=== PATIENT | male | born 1980 | race Caucasian/White ===

== ENCOUNTER 2018-10-25 11:55 | Outpatient (REF) | payer BC, SELFPAY ==
[2018-10-25 12:26] LABS: HCT 50.4 % (40.0-50.0); HGB 17.7 g/dL (13.5-17.5); Mean Corp. HGB Concentration 35.1 g/dL (32.0-36.0); Mean Corpuscular Hemoglobin 34.9 pg (27.0-33.0); Mean Corpuscular Volume 99.4 fL (80-95); Mean Platelet Volume 11.1 fL (8.0-11.0); Platelet Count 214 x1000/uL (130-400); RBC 5.07 m/cumm (4.50-6.00); RBC Distribution Width 13.2 % (11.8-14.1); White Blood Cell Count 9.37 k/cumm (4.4-10.8)
[2018-10-25 12:48] LABS: Hemoglobin A1C 5.3 % (4.5-6.2)
[2018-10-25 13:22] LABS: Anion Gap 8.9 mmol/L (3-11); BUN 11 mg/dL (7-18); CO2 27.1 mmol/L (21.0-32.0); CREATININE 1.04 mg/dL (0.70-1.30); Calcium 9.7 mg/dL (8.5-10.1); Chloride 103 mmol/L (98-107); Cholesterol 202 mg/dL (50-200); Glucose 98 mg/dL (70-100); HDL Cholesterol 53 mg/dL (40-60); LDL CHOLESTEROL 126 mg/dL (<100); Potassium 4.3 mmol/L (3.5-5.1); Sodium 139 mmol/L (136-145); Triglyceride 115 mg/dL (30-150)
== END 2018-10-25 12:15 ==
LOC: NCHCO 11:55
PROVIDERS: PCP Family Medicine; Visit Provider Family Medicine
DX: I71.4 Abdominal aortic aneurysm, without rupture (principal); I10 Essential (primary) hypertension
CPT/HCPCS: 36415; 80048; 80061; 83721; 85027; 83036

== ENCOUNTER 2019-07-05 10:53 | Outpatient (REF) | payer BC, SELFPAY ==
[2019-07-05 18:59] LABS: Anion Gap 6.8 mmol/L (3-11); BUN 12 mg/dL (7-18); CO2 30.2 mmol/L (21.0-32.0); CREATININE 1.11 mg/dL (0.70-1.30); Calcium 9.6 mg/dL (8.5-10.1); Chloride 104 mmol/L (98-107); Glucose 97 mg/dL (70-100); Potassium 5.1 mmol/L (3.5-5.1); Sodium 141 mmol/L (136-145)
== END 2019-07-05 11:13 ==
LOC: NCHCN 10:53
PROVIDERS: PCP Family Medicine; Visit Provider Family Medicine
DX: I10 Essential (primary) hypertension (principal)
CPT/HCPCS: 80048

== ENCOUNTER 2019-11-20 11:35 | Outpatient (CLI) | payer BC, SELFPAY ==
[2019-11-23 08:34] LABS: COVID-19 RT-PCR Result Not Detected
== END 2019-11-20 11:55 ==
LOC: NCHCN 17:52 → LBO 11-23 11:35
PROVIDERS: PCP Family Medicine; Visit Provider Nurse Practitioner Family
DX: Z20.828 Contact with and (suspected) exposure to other viral communicable diseases (principal); R05 Cough
CPT/HCPCS: U0003

== ENCOUNTER 2020-02-08 08:26 | Emergency (ER) | payer BC, SELFPAY ==
[2020-02-08] VITALS (51 sets, daily range): BP systolic 107–139; BP diastolic 67–96; PULSE 53–80; RESP 12–34; O2SAT 96–100
--- NOTE | 2020-02-08 08:45 | DI.CT_ITS ---
EXAM: CT THORAX ABD/PEL CTA TECHNIQUE: CT angiography of the chest, abdomen and pelvis was performed with bolus infusion of 100 cc of Omnipaque 350. Axial CT angiography was performed with multi-slice acquisition and multi-planar and/or 3D reconstruc tions. COMPARISON: CT ABD PELVIS WITH CONTRAST from 01/19/2017 FINDINGS: The lungs are clear. No pleural effusion. No evidence of pulmonary embolic disease although the pulm onary arteries were suboptimally opacified. No thoracic aortic dissection. No pleural effusion. No m ediastinal or hilar adenopathy. Tracheobronchial tree appears intact. No focal hepatic or renal abnormality seen. Gallbladder and bile ducts are CT normal. Pancreas is unr emarkable. 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 No abdominal aortic aneurysm or dissection. Major branches of the abdominal aorta appear normal. No a bdominal or pelvic adenopathy. Probable prior appendectomy.. No significant abdominal wall hernia. No focal bowel pathology. IMPRESSION: No evidence of acute vascular abnormality of the chest, abdomen or pelvis. No other abnormalities are seen. RADIATION DOSE DELIVERED: 973.63mGy.cm Total DLP DATA REPOSITORY: All CT scans at this facility are submitted to the National Radiology Data Registry (NRDR) Dose Index Registry (DIR) with the [employer] (ACR). RADIATION OPTIMIZATION: All CT scans at this facility use at least one of these dose optimization te chniques: automated exposure control; mA and/or kV adjustment per patient size (includes targeted exa ms where dose is matched to clinical indication); or iterative reconstruction.
--- NOTE | 2020-02-08 08:46 | ED.GENADUL_ITS ---
Discharge Plan Discharge Details Chief Complaint: Chest Pain Primary Care Provider: Marisa Kinney ED Provider: Mireya Shaw Home Meds and New Rx's Prescriptions: No Action lisinopril 20 mg Tablet 20 mg PO DAILY RF: 0 chlorthalidone 25 mg Tablet 25 mg PO DAILY RF: 0 Medical Decision Making 39-year-old male with a history of stomach cancer with multiple abdominal surgeries and history of a aortic aneurysm presents with chest pain x2 days which he describes as sharp stabbing worse with deep breathing which radiates into his back. He was doing some heavy lifting on Tuesday prior to onset of symptoms. He states that he was lifting a wood splitter by himself. He also endorses some shortness of breath, cough which is worse in the morning, nausea no diaphoresis, no lightheadedness. He sees cardiology and oncology at [facility]. He is a every day smoker. On initial presentation he is alert and oriented x4, vital signs are stable blood pressure is 139/96. He does have bilateral radial pulses which are equal no heart murmur heard. He also does have some mild abdominal tenderness. 08 38: EKG was reviewed by Mayra Goldsmith MD ER attending, no STEMI, less than [address] depression lead II, seen in previous old EKG review from January 14, 2013 0943: Patient transfer reported to CT on monitor with RN at bedside. Differential diagnosis includes but not limited to dissecting aortic aneurysm, coronary artery disease, PE, viral URI, COVID, NSTEMI 1024: Patient returns with RN from CT on monitor, remained hemodynamically stable, when laying down on the table patient reports pain got worse, upon sitting up increased dizziness, will repeat EKG. Awaiting CT results. 1034: EKG at 1031 shows changes in V1 V2 V3 flipped T waves, and anterior and lateral leads which is concerning for ischemia as soon as the CT result is returned with no dissection we will give aspirin and nitro to see if this relieves his chest pain. Initial troponin is within normal limits. Preliminary result received from Dr. Barrientos no dissection will give aspirin and nitro. 1116: Spoke with [facility] regarding patient for cardiology consult, patient to be transferred. 1157: Spoke with cardiology nurse practitioner who agrees to accept patient for transfer admitting physician is going to be Dr. Wilson with cardiology. She recommends Plavix 300 mg heparin drip, aspirin 162 mg and another nitroglycerin sublingual x2. 1232: Patient reevaluation still complaining of pain 5 out of 10 it is constant which waxes and wanes shortness of breath increases with deep breathing. At this time we are pending bed assignment cardiology re-paged to discuss continued pain after interventions. 1250: Spoke to [facility] cardiology nurse practitioner regarding patient's continued pain, nitro drip ordered per recommendation. 13 37: Spoke with patient's Marilu who is concerned for the amount of time is taken to be transferred, patient given encouragement and ensure that we are doing the best we can. [facility] transfer center called again and bed confirmation obtained, transport being arranged at this time. 1421: EMS here for transport, spoke again with patient's Marilu and informed of transfer and that [facility] is [facility] for [facility], verbalized understanding. Medical Records Medical records reviewed: Yes I reviewed the patient's medical records. Medical records narrative: 0926: Medical records obtained from [facility] from a cardiac office visit on 07/31/2019 by Seamus Alvarado cardiac surgery, they are following him for a moderate sized aneurysm noted CT with different technique his aorta is 4.1 cm he has been followed for yearly CT scans with aortic protocol. Old EKG reviewed from medical records which includes marked sinus bradycardia, moderate voltage criteria for LVH nonspecific T wave abnormalities of the EKG available for review on 04/22/2015. HPI General Mode of arrival: ambulatory . Date/Time Provider Initiated Documentation: 02/08/20 08:36 . Limitations to Documentation: no limitations . Information obtained by: patient . HPI Narrative: 39-year-old male with a history of stomach cancer with multiple abdominal surgeries and history of a aortic aneurysm presents with chest pain x2 days which he describes as sharp stabbing worse with deep breathing which radiates into his back. He was doing some heavy lifting on Tuesday prior to onset of symptoms. He states that he was lifting a wood splitter by himself. He also endorses some shortness of breath, cough which is worse in the morning, nausea no diaphoresis, no lightheadedness. He sees cardiology and oncology at [facility]. He is a every day smoker. On initial presentation he is alert and oriented x4, vital signs are stable blood pressure is 139/96. He does have bilateral radial pulses which are equal no heart murmur heard. He also does have some mild abdominal tenderness. Related Data Home Medications Medication Instructions Recorded Confirmed chlorthalidone 25 mg PO DAILY 02/08/20 02/08/20 lisinopril 20 mg PO DAILY 02/08/20 02/08/20 Allergies Allergy/AdvReac Type Severity Reaction Status Date / Time No Known Allergies Allergy Unverified 02/08/20 08:43 General Stated Complaint: Chest Pain JOSSELINE: 3 Review of Systems Narrative: Constitutional: Negative for weight loss, alert and oriented, well g roomed, normal body habitus, appears comfortable. HEENT: Denies trauma, headaches, blurry vision, nasal discharge, sore throat, trouble swallowing. Chest: Denies palpitations, irregular rhythm. Positive chest pain which radiates into the back started 2 days ago. Respiratory: Denies Shortness of breath, cough, hemoptysis. GI: Denies vomiting, diarrhea, constipation. Has history of stomach cancer requiring extensive abdominal surgery splenectomy cholecystectomy per patient. : Denies dysuria, hematuria, flank pain, rectal bleeding. Neuro: Denies dizziness, blurry vision, weakness, syncope, headache or facial numbness. Hematologic: Denies easy bruising, intolerance to heat or cold, hair loss. All systems reviewed & are unremarkable except as noted in HPI and below PFSH Social History Smoking/Tobacco Use Status: Current every day Drug use: Never Do you feel safe at home: Yes Do you feel safe in your relationship?: Yes Exam Narrative Exam Narrative: Constitutional: Alert and oriented x3. Appears stated age. Normal body habitus. Head: Normocephalic, no trauma. Eyes: Pupils PERRLA, Red reflex noted, EOM's intact. Eyelids symmetrical without lesions, discharge, or swelling. ENT: Bilateral TM's WNL, External ear normal to inspection, no mastoid TTP, swelling, or erythema, Nasal turbinates WNL, no nasal discharge. Normal dentition, Posterior pharynx WNL, no exudate. Chest: RRR, Normal S1, S2, distal pulses intact. No JV distention, bilateral radial pulses equal and within normal limits. Blood pressure is 139/96 Resp: Lungs clear to auscultation bilaterally, no wheezes, rales, or rhonchi. Abdomen: Soft, does have mild generalized tenderness with palpation. Nondistended. No abdominal bruit auscultated, Musculoskeletal: Normal gait, 5/5 strength to all four extremities. Skin: No suspicious rashes or lesions. Capillary refill less than 2 sec. Neurologic: Cranial nerves II-XII intact. Alert and oriented x 3. DTR's intact. Hematologic/Lymphatic: No ecchymosis, no lymphadenopathy. Course Vital Signs Vital signs: Vital Signs Pulse 80 02/08/20 08:34 Respiratory Rate 18 02/08/20 08:34 Blood Pressure 139/96 H 02/08/20 08:34 Pulse Oximetry 98 02/08/20 08:34 Pulse 80 02/08/20 08:34 Respiratory Rate 18 02/08/20 08:39 Respiratory Effort 02/08/20 08:39 Respiratory Depth Normal 02/08/20 08:39 Respiratory Pattern Normal 02/08/20 08:39 Blood Pressure 139/96 H 02/08/20 08:34 Blood Pressure Position Sitting 02/08/20 08:34 Pulse Oximetry 98 02/08/20 08:34 Oxygen Delivery Method Room Air 02/08/20 08:34 Oxygen Flow Rate 0 02/08/20 08:34 Pain Level 7 02/08/20 08:34 Critical Care Time Critical Care Time Total Critical Care Time: 40 Attestation: I spent greater than 35 minutes addressing this patient's acute life threatening illness. This time was spent engaged in actions directly related to the patient's care. Failure ti initiate these interventions would have likely resulted in clinically significant or life threatening deterioration in the patients condition. This included but not limited to cardiac interventions, frequent monitoring, frequent reevaluation, and speaking with family.
[2020-02-08 09:05] LABS: Abs Immature Grans 0.03 k/cumm (0.0-0.09); Absolute Basophil Count 0.06 k/cumm (0.0-0.2); Absolute Eosinophil Count 0.25 k/cumm (0.0-0.7); Absolute Lymphocyte Count 3.18 k/cumm (1.2-3.4); Absolute Monocyte Count 1.38 k/cumm (0.11-0.7); Absolute Neutrophil Count 6.34 k/cumm (1.2-6.7); Basophils % 0.5; Eosinophils % 2.2; HCT 48.7 % (40.0-50.0); HGB 17.6 g/dL (13.5-17.5); Immature Grans % 0.3 %; Lymphocytes % 28.3; Mean Corp. HGB Concentration 36.1 g/dL (32.0-36.0); Mean Corpuscular Hemoglobin 35.5 pg (27.0-33.0); Mean Corpuscular Volume 98.2 fL (80-95); Mean Platelet Volume 10.3 fL (8.0-11.0); Monocytes % 12.3; Neutrophils % 56.4; Platelet Count 299 x1000/uL (130-400); RBC 4.96 m/cumm (4.50-6.00); RBC Distribution Width 12.4 % (11.8-14.1); White Blood Cell Count 11.24 k/cumm (4.4-10.8)
[2020-02-08 09:21] LABS: ALT 58 U/L (16-63); AST 33 U/L (15-37); Albumin 4.2 g/dL (3.4-5.0); Alkaline Phosphatase 70 U/L (46-116); Anion Gap 9.2 mmol/L (3-11); BUN 15 mg/dL (7-18); Bilirubin, Total 1.3 mg/dL (0.2-1.0); CO2 26.8 mmol/L (21.0-32.0); CREATININE 1.13 mg/dL (0.70-1.30); Calcium 9.7 mg/dL (8.5-10.1); Chloride 97 mmol/L (98-107); Glucose 104 mg/dL (74-106); Potassium 3.4 mmol/L (3.5-5.1); Sodium 133 mmol/L (136-145); Total Protein 8.3 g/dL (6.4-8.2)
[2020-02-08 09:22] LABS: Troponin I < 0.05 ng/mL (<0.06)
[2020-02-08 09:35] LABS: D-Dimer 203 ng/mlFEU (<500)
[2020-02-08] MEDS: Omnipaque 350 MG/ML 100 ML BTL IJ (10:22)
[2020-02-08] MEDS: Normal Saline - Diluent 50 ML VIAL IV (10:23)
[2020-02-08] MEDS: Normal Saline Flush 10 ML SYR IVP (10:24)
[2020-02-08] MEDS: Normal Saline 1,000 ML 1000 ML IV (10:25)
[2020-02-08] MEDS: Aspirin 81 MG CHEW 162 MG CH (10:50)
[2020-02-08 11:41] LABS: Troponin I < 0.05 ng/mL (<0.06)
[2020-02-08] MEDS: Clopidogrel 300 MG TAB PO (11:56)
[2020-02-08 12:43] LABS: *AMPHETAMINES SCREEN URINE Negative (Negative); *BARBITURATES SCREEN URINE Negative (Negative); *BENZODIAZEPINES SCREEN URINE Negative (Negative); Cannabinoids THC POSITIVE (Negative); Cocaine Screen,Urine Negative (Negative); METHADONE URINE SCREEN Negative (Negative); OPIATES URINE SCREEN Negative (Negative)
[2020-02-08 12:46] LABS: Tricyclic Antidepressants Negative (Negative)
[2020-02-08 22:03] LABS: COVID-19 RT-PCR UVMMC Result Negative (Negative)
== END 2020-02-08 14:08 | disposition short-term general hospital (02) ==
PROVIDERS: Emergency Provider Registered Nurse Emergency; PCP Family Medicine
DX: I20.9 Angina pectoris, unspecified (principal); R06.02 Shortness of breath; I71.9 Aortic aneurysm of unspecified site, without rupture; R11.0 Nausea; C16.9 Malignant neoplasm of stomach, unspecified; F17.200 Nicotine dependence, unspecified, uncomplicated
CPT/HCPCS: 36415; 74177; 80053; 80307; 93005; 96361; 96365; 96366; 96376; 99291; U0003; 83735; 84484; 85025; 85379; 93010; J3490

== ENCOUNTER 2020-11-03 13:40 | Outpatient (REF) | payer OTHER, SELFPAY ==
[2020-11-03 16:25] LABS: HCT 44.1 % (40.0-50.0); HGB 15.1 g/dL (13.5-17.5); MCH 34.2 pg (27.0-33.0); MCHC 34.2 % (32.0-36.0); MPV 12.2 fL (8.0-11.0); Platelet Count 264 10^3/uL (130-400); RBC 4.41 10^6/uL (4.36-5.78); RDW 13.8 % (11.8-14.1); RDW-SD 51.1 fL; WBC 8.85 10^3/uL (4.4-10.8)
[2020-11-03 16:44] LABS: ALT 34 U/L (16-63); Anion Gap 6.8 mmol/L (3-11); BUN 15 mg/dL (7-18); CO2 27.2 mmol/L (21.0-32.0); CREATININE 1.2 mg/dL (0.70-1.30); Calcium 9.1 mg/dL (8.5-10.1); Calculated LDL 114 mg/dL (<100); Chloride 105 mmol/L (98-107); Cholesterol 194 mg/dL (<200); Glucose 94 mg/dL (74-106); HDL Cholesterol 65 mg/dL (40-60); Potassium 4.2 mmol/L (3.5-5.1); Sodium 139 mmol/L (136-145); Triglyceride 76 mg/dL (<150)
[2020-11-03 17:01] LABS: Hemoglobin A1C 5.4 % (<5.7)
== END 2020-11-03 13:41 | disposition home or self-care (01) ==
LOC: NCHCN 13:40
PROVIDERS: PCP Family Medicine; Visit Provider Family Medicine
DX: I10 Essential (primary) hypertension (principal); E78.5 Hyperlipidemia, unspecified; Z13.1 Encounter for screening for diabetes mellitus; Z90.81 Acquired absence of spleen
CPT/HCPCS: 80048; 80061; 85027; 83036; 84460

== ENCOUNTER 2021-03-11 13:59 | Outpatient (REF) | payer OTHER, SELFPAY ==
[2021-03-13 11:49] LABS: COVID-19 RT-PCR UVMMC Result Negative (Negative)
== END 2021-03-11 14:00 | disposition home or self-care (01) ==
LOC: LBN 13:59
PROVIDERS: PCP Family Medicine; Visit Provider Family Medicine
DX: J06.9 Acute upper respiratory infection, unspecified (principal); J02.9 Acute pharyngitis, unspecified; Z20.822 Contact with and (suspected) exposure to COVID-19
CPT/HCPCS: U0003; 87070

== ENCOUNTER 2021-09-29 09:51 | Emergency (ER) | payer OTHER, SELFPAY ==
[2021-09-29] VITALS (34 sets, daily range): BP systolic 116–144; BP diastolic 68–93; PULSE 52–79; RESP 10–20; TEMP 36.6–36.7; O2SAT 98–100
--- NOTE | 2021-09-29 09:45 | RT.EKG_ITS ---
APPROVED REPORT Exam: Resting ECG Reason for Exam: dizzy Patient Location: E HR:65 bpm ECG Measurements Heart Rate 65 AXIS NJ 126 P 44 QRSd 93 QRS 51 QT 372 T 261 QTc 388 Conclusion Sinus rhythm. LVH Nonspecific T abnormalities, diffuse leads...T <-0.10mV, ant/lat/inf
--- NOTE | 2021-09-29 10:00 | DI.CT_ITS ---
Exam(s) CT THORAX ABD/PEL CTA EXAM: CT THORAX ABD/PEL CTA CLINICAL HISTORY: chest pressure, sob, hx aneurysm. TECHNIQUE: Imaging Protocol: Axial CT angiography was performed with multi-slice acquisition and m ulti-planar and/or 3D reconstructions. CONTRAST MATERIAL: Intravenous: Omnipaque 350 Contrast volume:structured data in ml Oral: No COMPARISON: CT CT ANGIOGRAM CHEST (NON-CORONARY) WWO CONTRAST from 07/31/[address] THORAX ABD/PEL CTA from 02/08/2020 FINDINGS: CHEST: Tracheobronchial tree: Patent where visualized. Pulmonary parenchyma: No consolidation or dominant measurable mass. No architectural distortion. Depe ndent atelectasis. Pulmonary Arteries: No evidence of filling defect to suggest pulmonary emboli. Mediastinum and Kristen: No dominant adenopathy or fluid collection. The esophagus is unremarkable. Visualized thyroid: Unremarkable. Pleura: No effusion or pneumothorax. Heart: The heart is not dilated. No coronary artery calcifications are seen. No pericardial effusion. Aorta: The ascending thoracic aorta measures 4 cm. This is unchanged compared to the prior examinati ons. No dissection. Soft Tissues: Unremarkable. Bones: Within normal limits for the patient's age. ABDOMEN AND PELVIS: Abdomen: Celiac axis/mesenteric arteries: No evidence of occlusion or significant stenosis. Renal Arteries: No evidence of occlusion or significant stenosis. There is a single renal artery per fusing each kidney. Aorta: No evidence of occlusion or significant stenosis. No aneurysm or dissection. Pelvis: Iliac Arteries: No evidence of occlusion or significant stenosis. Common Femoral Arteries: No evidence of occlusion or significant stenosis. ABDOMEN: Liver: Normal density. No measurable mass. Portal, Superior Mesenteric, and Splenic Veins: Unremarkable. Gallbladder and Biliary Tract: No biliary ductal dilatation. Pancreas: Normal density, no abnormal calcifications or inflammatory process. Spleen: The spleen is absent. Adrenals: No masses seen. Kidneys: Normal size, contour and axis. No radiodense stones or obstructive uropathy. There are few t iny hypodensities seen in the left kidney. They are too small for further characterization but likel y reflect small cysts. No follow-up is recommended. Bowel: No obstruction or bowel wall thickening. No evidence of appendicitis. Peritoneal Cavity: No ascites, collection or mesenteric inflammatory response. No free air. Lymph Nodes: Within normal limits. Bones: Within normal limits for the patient's age. Soft Tissues: Unremarkable. PELVIS: Bladder: Symmetric distention, no gross wall thickening. Reproductive Organs: Enlarged prostate gland with calcifications. Lymph Nodes: Within normal limits. Bones: Within normal limits. IMPRESSION: 1. No evidence of aneurysm, dissection, occlusion or significant stenosis of the large arteries in th e chest abdomen and pelvis. 2. No evidence of a pulmonary embolus. 3. No acute abdominal, chest or pelvic process. 4. Results of this exam have been verbally communicated with provider. RADIATION DOSE DELIVERED: 974.02mGy.cm Total DLP DATA REPOSITORY: All CT scans at this facility are submitted to the National Radiology Data Registry (NRDR) Dose Index Registry (DIR) with the [employer] (ACR). RADIATION OPTIMIZATION: All CT scans at this facility use at least one of these dose optimization te chniques: automated exposure control; mA and/or kV adjustment per patient size (includes targeted exa ms where dose is matched to clinical indication); or iterative reconstruction.
--- NOTE | 2021-09-29 10:15 | DI.CT_ITS ---
Exam(s) CT BRAIN NECK CTA EXAM: CT BRAIN NECK CTA CLINICAL HISTORY: head fog, GONSALVES, blurry vision. TECHNIQUE: Imaging Protocol: Axial CT angiography was performed with multi-slice acquisition and mu lti-planar and/or 3D reconstructions. CONTRAST MATERIAL: Intravenous: Omnipaque 350 Contrast volume:100 mL COMPARISON: CT CT THORAX ABD/PEL CTA from 09/29/2021 FINDINGS: CT Head W/O and W: Ventricles and Extra axial spaces: Normal in size and morphology for the patient's age. Hemorrhage: None. Cerebral parenchyma: Normal. Midline shift: None. Brainstem/Cerebellum: Normal. Calvarium: Normal. Visualized Paranasal sinuses/Mastoids: Clear. Soft Tissues: Unremarkable. Enhancement: Unremarkable. CTA Neck W: Common Carotid: Right: No dissection, occlusion or significant stenosis. Left: No dissection, occlusion or significant stenosis. External Carotid: Right: No occlusion or significant stenosis. Left: No occlusion or significant stenosis. Internal Carotid: Right: No dissection, occlusion or significant stenosis. Left: No dissection, occlusion or significant stenosis. Vertebral Artery: Right: No dissection, occlusion or significant stenosis. Left: No dissection, occlusion or significant stenosis. Lung Apices: Normal. Bones: Within normal limits for the patient's age. Soft Tissues: Normal. Thyroid gland: Unremarkable. CTA Brain W: Internal Carotid Arteries: Normal. Anterior Cerebral Arteries: Right: No aneurysm, occlusion or significant stenosis. Left: No aneurysm, occlusion or significant stenosis. Middle Cerebral Arteries: Right: No aneurysm, occlusion or significant stenosis. Left: No aneurysm, occlusion or significant stenosis. Posterior Cerebral Arteries: Right: No aneurysm, occlusion or significant stenosis. Left: No aneurysm, occlusion or significant stenosis. Vertebral Arteries: Right: No aneurysm, occlusion or significant stenosis. Left: No aneurysm, occlusion or significant stenosis. Basilar Artery: No aneurysm, occlusion or significant stenosis. IMPRESSION: 1. No large vessel occlusion or significant stenosis on the CT angiography of the head. 2. No acute intracranial process. 3. No occlusion or significant stenosis on the CT angiography of the neck. RADIATION DOSE DELIVERED: 2,045.45mGy.cm Total DLP DATA REPOSITORY: All CT scans at this facility are submitted to the National Radiology Data Registry (NRDR) Dose Index Registry (DIR) with the [employer] (ACR). RADIATION OPTIMIZATION: All CT scans at this facility use at least one of these dose optimization te chniques: automated exposure control; mA and/or kV adjustment per patient size (includes targeted exa ms where dose is matched to clinical indication); or iterative reconstruction.
[2021-09-29 10:39] LABS: Abs Immature Grans 0.02 10^3/uL (0.0-0.06); Absolute Basophil Count 0.07 10^3/uL (0.0-0.2); Absolute Eosinophil Count 0.08 10^3/uL (0.0-0.7); Absolute Lymphocyte Count 3.16 10^3/uL (1.2-3.4); Basophils % 0.8; Eosinophils % 0.9; HGB 16.3 g/dL (13.5-17.5); Immature Grans % 0.2; Lymphocytes % 34.6; MCHC 35.4 % (32.0-36.0); MCV 95.8 fL (80-95); MPV 10.6 fL (8.0-11.0); Monocytes % 9.9; Neutrophils % 53.6; Nucleated RBC 0 %; Platelet Count 298 10^3/uL (130-400); RDW 12.1 % (11.8-14.1); RDW-SD 42.9 fL; WBC 9.13 10^3/uL (4.4-10.8)
[2021-09-29 10:48] LABS: Source Nasal/Nares
[2021-09-29 10:52] LABS: PTT Activated 23.5 sec (21.0-27.5); Prothrombin Time 10.5 sec (9.3-11.0)
--- NOTE | 2021-09-29 10:52 | ED.GENADUL_ITS ---
Discharge Plan Disposition Patient Disposition: HOME Condition: Stable Discharge Details Clinical Impression: Chest pain Primary Care Provider: Marisa Kinney ED Provider: Jovany Beck Home Meds and New Rx's Prescriptions: Continued atorvastatin 10 mg tablet 10 mg PO DAILY RF: 0 lisinopril 20 mg Tablet 20 mg PO DAILY RF: 0 chlorthalidone 25 mg Tablet 25 mg PO DAILY RF: 0 Discharge Instructions Instructions: Chest Pain (ED) Additional Instructions: Your work-up today does not reveal any obvious emergent process. I spoke with cardiology at [facility] who felt as though discharge home is reasonable with close outpatient follow-up. [id number] anti-inflammatory medication such as Motrin or ibuprofen as directed. Please watch for new or worsening symptoms and return to the ER for any concerns. I recommend reaching out to both your primary care provider and your cardiology team later today or tomorrow to discuss your ER visit, need for outpatient reevaluation, and potential o utpatient stress test. Medical Decision Making 41-year-old gentleman, current smoker, history of stomach cancer, aortic regurgitation, ascending aortic aneurysm, presents to the ER with multiple complaints, head fall, dizziness, feeling like it is passed out, chest pressure, shortness of breath that all began yesterday. He denies recent illness or trauma. Patient is slightly reproducible and may be slightly worse with sitting upright. Clinically he appears well, nontoxic, hemodynamically stable. Based upon his presentation low suspicion for ACS, PE, pneumonia, etc. Given his history, certainly concern for dissection, pericarditis, etc. Plan is to obtain a cardiac work-up including a D-dimer, will obtain CTA of the brain, neck, ches t, abdomen, pelvis given his complaints both of chest discomfort, headache, blurry vision, etc. Patient is agreeable to this plan and has no additional questions or concerns. Currently reports discomfort is a 4 or 5 out of 10. In the meantime I was able to review records from [facility], February 2020 when he was transferred there for chest pain. Negative stress test, eventually discharged with a diagnosis of pericarditis. Initial laboratory values are unremarkable for emergent process. Troponin is less than 50. Sodium 134 potassium 3.4 creatinine 1.02 GFR greater than 60. Glucose 140, no evidence of leukocytosis or anemia. Total bili of 1.6 but does not have any abdominal pain whatsoever. BNP 16. Covid negative. D-dimer 295. CTA of brain, neck, chest, pelvis unremarkable for emergent process per radiology Discussed work-up thus far with patient. Reports his pain is a three or four. He is agreeable to awaiting a repeat troponin. In the meantime I was able to consult with cardiology from [facility], Cassia Bethea NP. She was able to personally reviewed the EKG from today, reviewed his visit at [facility], and we discussed his overall presentation and work-up today. She feels that the patient can safely be discharged if he has a delta troponin that is not trending upward. She feels as though obtaining a CRP and sed rate is reasonable, if positive treat for pericarditis with colchicine and high-dose aspirin, if unremarkable simply treat with anti-inflammatory medications. She recommends the patient contact the cardiology team as an outpatient this is a evaluation of potential repeat stress CRP less than 0.05, sed rate 7. Patient given 30 IV Toradol I spoke with the patient regarding his overall work-up including delta troponin which is unremarkable, inflammatory markers, and my conversation with cardiology. He reports now his pain is barely noticeable 1 out of 10. He is comfortable discharge. Strict discharge and return precautions were provided. This documentation was generated using x[employer] dictation system, please disregard any oddities of phrase or misspellings. Medical Records Medical records reviewed: Yes I reviewed the patient's medical records. Imaging Data Radiologic Study: Attestation: I personally reviewed and interpreted this imaging study as follows: Imaging: CT Scan Radiologist's impression: Exam(s) CT BRAIN NECK CTA EXAM: CT BRAIN NECK CTA CLINICAL HISTORY: head fog, GONSALVES, blurry vision. TECHNIQUE: Imaging Protocol: Axial CT angiography was performed with multi- slice acquisition and multi-planar and/or 3D reconstructions. CONTRAST MATERIAL: Intravenous: Omnipaque 350 Contrast volume:100 mL COMPARISON: CT CT THORAX ABD/PEL CTA from 09/29/2021 FINDINGS: CT Head W/O and W: Ventricles and Extra axial spaces: Normal in size and morphology for the patient's age. Hemorrhage: None. Cerebral parenchyma: Normal. Midline shift: None. Brainstem/Cerebellum: Normal. Calvarium: Normal. Visualized Paranasal sinuses/Mastoids: Clear. Soft Tissues: Unremarkable. Enhancement: Unremarkable. CTA Neck W: Common Carotid: Right: No dissection, occlusion or significant stenosis. Left: No dissection, occlusion or significant stenosis. External Carotid: Right: No occlusion or significant stenosis. Left: No occlusion or significant stenosis. Internal Carotid: Right: No dissection, occlusion or significant stenosis. Left: No dissection, occlusion or significant stenosis. Vertebral Artery: Right: No dissection, occlusion or significant stenosis. Left: No dissection, occlusion or significant stenosis. Lung Apices: Normal. Bones: Within normal limits for the patient's age. Soft Tissues: Normal. Thyroid gland: Unremarkable. CTA Brain W: Internal Carotid Arteries: Normal. Anterior Cerebral Arteries: Right: No aneurysm, occlusion or significant stenosis. Left: No aneurysm, occlusion or significant stenosis. Middle Cerebral Arteries: Right: No aneurysm, occlusion or significant stenosis. Left: No aneurysm, occlusion or significant stenosis. Posterior Cerebral Arteries: Right: No aneurysm, occlusion or significant stenosis. Left: No aneurysm, occlusion or significant stenosis. Vertebral Arteries: Right: No aneurysm, occlusion or significant stenosis. Left: No aneurysm, occlusion or significant stenosis. Basilar Artery: No aneurysm, occlusion or significant stenosis. IMPRESSION: 1. No large vessel occlusion or significant stenosis on the CT angiography of the head. 2. No acute intracranial process. 3. No occlusion or significant stenosis on the CT angiography of the neck. Lab Data Lab results reviewed: Yes I reviewed the patient's lab results. Labs: Laboratory Tests Range/Units 09/29/21 09/29/21 09/29/21 10:05 10:05 10:05 WBC (4.4-10.8) 10^3/uL 9.13 RBC (4.36-5.78) 10^6/uL 4.80 Hgb (13.5-17.5) g/dL 16.3 Hct (40.0-50.0) % 46.0 MCV (80-95) fL 95.8 H MCH (27.0-33.0) pg 34.0 H MCHC (32.0-36.0) % 35.4 RDW (11.8-14.1) % 12.1 Plt Count (130-400) 10^3/uL 298 MPV (8.0-11.0) fL 10.6 Immature Gran % 0.2 Neutrophils % 53.6 Lymphocytes % 34.6 Monocytes % 9.9 Eosinophils % 0.9 Basophils % 0.8 Nucleated RBC % % 0 Absolute Neutrophils (1.2-6.7) 10^3/uL 4.90 Absolute Lymphocytes (1.2-3.4) 10^3/uL 3.16 Absolute Monocytes (0.1-0.8) 10^3/uL 0.90 H Absolute Eosinophils (0.0-0.7) 10^3/uL 0.08 Absolute Basophils (0.0-0.2) 10^3/uL 0.07 ESR (0-15) mm/hr PT (9.3-11.0) sec 10.5 INR (0.9-1.1) 1.0 APTT (21.0-27.5) sec 23.5 D-Dimer (<500) ng/mlFEU 295 Sodium (136-145) mmol/L 134 L Potassium (3.5-5.1) mmol/L 3.4 L Chloride (98-107) mmol/L 97 L Carbon Dioxide (21.0-32.0) mmol/L 28.7 Anion Gap (3-11) mmol/L 8.3 BUN (7-18) mg/dL 12 Creatinine (0.70-1.30) mg/dL 1.1 Estimated GFR/1.73 m2 (mL/min/1.73m2) >= 60.00 Glucose (74-106) mg/dL 140 H Calcium (8.5-10.1) mg/dL 9.2 Magnesium (1.8-2.4) mg/dL 2.0 Total Bilirubin (0.2-1.0) mg/dL 1.6 H AST (15-37) U/L 20 ALT (16-63) U/L 29 Alkaline Phosphatase (46-116) U/L 72 Troponin I (<or=60) ng/L < 50 C-Reactive Protein (0.0-0.3) mg/dL NT-Pro-B Natriuret Pep (<300) pg/mL 16 Total Protein (6.4-8.2) g/dL 8.2 Albumin (3.4-5.0) g/dL 4.2 COVID-19 Source SARS-CoV-2 (PCR) (Negative) Range/Units 09/29/21 09/29/21 09/29/21 10:05 10:05 10:32 WBC (4.4-10.8) 10^3/uL RBC (4.36-5.78) 10^6/uL Hgb (13.5-17.5) g/dL Hct (40.0-50.0) % MCV (80-95) fL MCH (27.0-33.0) pg MCHC (32.0-36.0) % RDW (11.8-14.1) % Plt Count (130-400) 10^3/uL MPV (8.0-11.0) fL Immature Gran % Neutrophils % Lymphocytes % Monocytes % Eosinophils % Basophils % Nucleated RBC % % Absolute Neutrophils (1.2-6.7) 10^3/uL Absolute Lymphocytes (1.2-3.4) 10^3/uL Absolute Monocytes (0.1-0.8) 10^3/uL Absolute Eosinophils (0.0-0.7) 10^3/uL Absolute Basophils (0.0-0.2) 10^3/uL ESR (0-15) mm/hr 7 PT (9.3-11.0) sec INR (0.9-1.1) APTT (21.0-27.5) sec D-Dimer (<500) ng/mlFEU Sodium (136-145) mmol/L Potassium (3.5-5.1) mmol/L Chloride (98-107) mmol/L Carbon Dioxide (21.0-32.0) mmol/L Anion Gap (3-11) mmol/L BUN (7-18) mg/dL Creatinine (0.70-1.30) mg/dL Estimated GFR/1.73 m2 (mL/min/1.73m2) Glucose (74-106) mg/dL Calcium (8.5-10.1) mg/dL Magnesium (1.8-2.4) mg/dL Total Bilirubin (0.2-1.0) mg/dL AST (15-37) U/L ALT (16-63) U/L Alkaline Phosphatase (46-116) U/L Troponin I (<or=60) ng/L C-Reactive Protein (0.0-0.3) mg/dL < 0.05 NT-Pro-B Natriuret Pep (<300) pg/mL Total Protein (6.4-8.2) g/dL Albumin (3.4-5.0) g/dL COVID-19 Source Nasal/Nares SARS-CoV-2 (PCR) (Negative) Negative Range/Units 09/29/21 13:07 WBC (4.4-10.8) 10^3/uL RBC (4.36-5.78) 10^6/uL Hgb (13.5-17.5) g/dL Hct (40.0-50.0) % MCV (80-95) fL MCH (27.0-33.0) pg MCHC (32.0-36.0) % RDW (11.8-14.1) % Plt Count (130-400) 10^3/uL MPV (8.0-11.0) fL Immature Gran % Neutrophils % Lymphocytes % Monocytes % Eosinophils % Basophils % Nucleated RBC % % Absolute Neutrophils (1.2-6.7) 10^3/uL Absolute Lymphocytes (1.2-3.4) 10^3/uL Absolute Monocytes (0.1-0.8) 10^3/uL Absolute Eosinophils (0.0-0.7) 10^3/uL Absolute Basophils (0.0-0.2) 10^3/uL ESR (0-15) mm/hr PT (9.3-11.0) sec INR (0.9-1.1) APTT (21.0-27.5) sec D-Dimer (<500) ng/mlFEU Sodium (136-145) mmol/L Potassium (3.5-5.1) mmol/L Chloride (98-107) mmol/L Carbon Dioxide (21.0-32.0) mmol/L Anion Gap (3-11) mmol/L BUN (7-18) mg/dL Creatinine (0.70-1.30) mg/dL Estimated GFR/1.73 m2 (mL/min/1.73m2) Glucose (74-106) mg/dL Calcium (8.5-10.1) mg/dL Magnesium (1.8-2.4) mg/dL Total Bilirubin (0.2-1.0) mg/dL AST (15-37) U/L ALT (16-63) U/L Alkaline Phosphatase (46-116) U/L Troponin I (<or=60) ng/L < 50 C-Reactive Protein (0.0-0.3) mg/dL NT-Pro-B Natriuret Pep (<300) pg/mL Total Protein (6.4-8.2) g/dL Albumin (3.4-5.0) g/dL COVID-19 Source SARS-CoV-2 (PCR) (Negative) ECG Data Attestation: I personally reviewed and interpreted this ECG (s) as follows: Interpretation: Please see official report by Dr. Lock. Sinus rhythm, ventricular rate of 65. Nonspecific T wave analysis, diffuse. No STEMI HPI General Mode of arrival: ambulatory . Date/Time Provider Initiated Documentation: 09/29/21 09:55 . Limitations to Documentation: no limitations . Information obtained by: patient . HPI Narrative: This is a 41-year-old gentleman, past medical history of stomach cancer status post multiple surgeries, aortic regurgitation, ascending aortic aneurysm, hypertension, pericarditis, followed by cardiology at [facility], presents to the ER for evaluation of what he describes as feeling like he is in a head fog, feeling slightly dizzy at times, almost pass out, also 4 out of 10 left anterior chest aching does not radiate anywhere, shortness of breath worse with exertion, all of this began yesterday. He denies recent illness or trauma. He has not taken any medication for his symptoms. He reports mild headache, nausea yesterday but none now. Occasional blurry vision. He denies fever, neck pain, cough, abdominal pain, vomiting, change in bowel or bladder function, numbness, tingling, weakness, skin rash. He took a negative at home Covid test yesterday and today that were both negative. Patient had similar symptoms in February 2020, subsequently transferred to [facility], negative stress test, diagnosed with pericarditis. Related Data Home Medications Medication Instructions Recorded Confirmed chlorthalidone 25 mg PO DAILY 02/08/20 09/29/21 lisinopril 20 mg PO DAILY 02/08/20 09/29/21 atorvastatin 10 mg tablet 10 mg PO DAILY 05/05/21 09/29/21 Allergies Allergy/AdvReac Type Severity Reaction Status Date / Time No Known Allergies Allergy Verified 09/29/21 10:00 General Stated Complaint: Chest Pain JOSSELINE: 2 Review of Systems Constitutional Constitutional: Denies fatigue, Denies fever(s), Reports headache(s) and Denies weakness Eyes Eyes: Reports blurry vision ENT Ears, Nose, Mouth, and Throat: Reports headache(s) and Denies neck pain Cardiovascular Cardiovascular: Reports chest pain and Reports dyspnea Respiratory Respiratory: Denies cough and Reports dyspnea Gastrointestinal Gastrointestinal: Denies abdominal pain, Reports nausea and Denies vomiting Musculoskeletal Musculoskeletal: Denies neck pain, Denies numbness and Denies tingling Integumentary/Breasts Skin/Breast: Denies rash Neurologic Neurologic: Reports headache(s), Denies numbness, Denies tingling and Denies weakness Endocrine Endocrine: Denies fatigue Hematologic/Lymphatic Hematologic/Lymphatic: Denies easy bleeding and Denies easy bruising PFSH All Active Problems (Updated 09/29/21 @ 13:57 by KAREN Tidwell) Chest pain (Acute) Decreased hearing of right ear (Acute) Subjective 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 Mixed hearing loss, bilateral (Acute) Perforation of right tympanic membrane (Acute) Left flank pain (Acute 11/14/13) Renal colic on left side (Acute 11/14/13) Medical History Aortic regurgitation Ascending aortic aneurysm HLD (hyperlipidemia) Hypertension Perforated appendicitis Pericarditis Splenic vein thrombosis Social History Smoking/Tobacco Use Status: Current every day Tobacco Type: cigarettes Smoking risk assessment performed?: Yes Alcohol Intake: current Alcohol Intake frequency: 0-2 drinks per day Alcohol type: beer Drug use: Occasionally Substance use type: marijuana Do you feel safe at home: Yes Do you feel safe in your relationship?: Yes Exam Const General: cooperative, healthy appearing, comfortable and no acute distress Orientation: alert, awake and oriented x3 HENMT Head: normal to inspection, normocephalic and atraumatic Face and sinus: normal facial exam Mouth: moist mucous membranes Eyes General: appearance normal, both eyes and all related structures Conjunctivae: conjunctivae normal Neck Neck: normal visual inspection, full ROM, no meningeal signs, trachea midline, supple and nontender Chest Chest: normal inspection of the chest Chest/axillae images: 1. Mild discomfort to moderate palpation. No erythema, ecchymosis, warmth, crepitus. Resp Effort & Inspection: normal respiratory effort and able to speak in complete sentences Auscultation: clear to auscultation bilaterally Cardio Rate: regular rate Rhythm: regular rhythm Pulses: normal peripheral pulses (Equal all 4 extremities) GI Inspection: normal to inspection Palpation: soft, not firm, no guarding, no pulsatile masses and nontender Auscultation: normal bowel sounds Back/Spine/Pelvis Back: No back tenderness Skin General skin exam: no rashes or lesions noted Neuro General: patient alert, patient awake, patient oriented x3, moves all extremities and no focal motor deficits Cognition: normal cognition Speech: speech normal Gait: normal gait Motor: muscle tone normal throughout Sensory Exam: no sensory deficits noted Extrem General: normal to inspection, full ROM, capillary refill normal, no pedal edema and no calf tenderness Psych Appearance: grossly normal Mental Status: mental status grossly normal Course Vital Signs Vital signs: Vital Signs Temperature 36.6 C 09/29/21 09:57 Pulse 64 09/29/21 09:57 Respiratory Rate 18 09/29/21 09:57 Blood Pressure 144/81 H 09/29/21 09:57 Pulse Oximetry 99 09/29/21 09:57 Temperature 36.6 C 09/29/21 09:57 Temperature Source Temporal Artery Scan 09/29/21 09:57 Pulse 64 09/29/21 09:57 Respiratory Rate 18 09/29/21 09:57 Respiratory Effort 09/29/21 10:02 Respiratory Depth Normal 09/29/21 10:02 Respiratory Pattern Normal 09/29/21 10:02 Blood Pressure 144/81 H 09/29/21 09:57 Blood Pressure Position Sitting 09/29/21 09:57 Pulse Oximetry 99 09/29/21 09:57 Oxygen Delivery Method Room Air 09/29/21 09:57 Oxygen Flow Rate 0 09/29/21 09:57 Pain Level 4 09/29/21 09:57 Lab/Test Results Lab/Test Results: Laboratory Tests Range/Units 09/29/21 09/29/21 10:05 10:32 WBC (4.4-10.8) 10^3/uL 9.13 RBC (4.36-5.78) 10^6/uL 4.80 Hgb (13.5-17.5) g/dL 16.3 Hct (40.0-50.0) % 46.0 MCV (80-95) fL 95.8 H MCH (27.0-33.0) pg 34.0 H MCHC (32.0-36.0) % 35.4 RDW (11.8-14.1) % 12.1 Plt Count (130-400) 10^3/uL 298 MPV (8.0-11.0) fL 10.6 Immature Gran % 0.2 Neutrophils % 53.6 Lymphocytes % 34.6 Monocytes % 9.9 Eosinophils % 0.9 Basophils % 0.8 Nucleated RBC % % 0 Absolute Neutrophils (1.2-6.7) 10^3/uL 4.90 Absolute Lymphocytes (1.2-3.4) 10^3/uL 3.16 Absolute Monocytes (0.1-0.8) 10^3/uL 0.90 H Absolute Eosinophils (0.0-0.7) 10^3/uL 0.08 Absolute Basophils (0.0-0.2) 10^3/uL 0.07 COVID-19 Source Nasal/Nares PAWSS Have you Been Recently Intoxicated or Drunk Within the Last 30 days?: No Have you Ever Experienced Previous Episodes of Alcohol Withdrawal?: No Have you ever Experienced Withdrawal Seizures?: No Have you ever Experienced Delirium Tremens(DT)s?: No Have you ever undergone Alcohol Rehabilitation Treatment (i.e, inpt ot outpatient treatment programs)?: No Have you ever Experienced Blackouts?: No Have you ever Combined Alcohol with other Downers within the last 90 days?: No Have you ever Combined Alcohol with any other Substance of Abuse during the last 90 days?: No Positive Blood Alcohol level on Presentation? [PCS.BAL]: No Evidence of Increased Autonomic Activity (i.e. HR>120, tremor, sweating, agitation, nausea)?: No Result: 0
[2021-09-29 10:57] LABS: ALT 29 U/L (16-63); AST 20 U/L (15-37); Albumin 4.2 g/dL (3.4-5.0); Alkaline Phosphatase 72 U/L (46-116); Anion Gap 8.3 mmol/L (3-11); BUN 12 mg/dL (7-18); Bilirubin, Total 1.6 mg/dL (0.2-1.0); CO2 28.7 mmol/L (21.0-32.0); CREATININE 1.1 mg/dL (0.70-1.30); Calcium 9.2 mg/dL (8.5-10.1); Chloride 97 mmol/L (98-107); Glucose 140 mg/dL (74-106); NT-proBNP 16 pg/mL (<300); Potassium 3.4 mmol/L (3.5-5.1); Sodium 134 mmol/L (136-145); Total Protein 8.2 g/dL (6.4-8.2); Troponin I < 50 ng/L (<or=60)
[2021-09-29 11:13] LABS: D-Dimer 295 ng/mlFEU (<500)
[2021-09-29 11:28] LABS: COVID-19 PCR Negative (Negative)
[2021-09-29] MEDS: Omnipaque 350 MG/ML 100 ML BTL IJ ×2 (11:29→11:30)
[2021-09-29 13:31] LABS: Troponin I < 50 ng/L (<or=60)
[2021-09-29] MEDS: Ketorolac 30 MG/ML VIAL IVP (13:32)
[2021-09-29 13:41] LABS: ESR 7 mm/hr (0-15)
[2021-09-29 13:49] LABS: C-Reactive Protein < 0.05 mg/dL (0.0-0.3)
== END 2021-09-29 14:31 | disposition home or self-care (01) ==
PROVIDERS: Emergency Provider Physician Assistant; PCP Family Medicine
DX: R07.9 Chest pain, unspecified (principal); R42 Dizziness and giddiness; R51.9 Headache, unspecified; R06.02 Shortness of breath; I71.9 Aortic aneurysm of unspecified site, without rupture; H53.8 Other visual disturbances; Z20.822 Contact with and (suspected) exposure to COVID-19
CPT/HCPCS: 36415; 70496; 70498; 74177; 80053; 85652; 87635; 93005; 96374; 99284; 99285; 83735; 83880; 84484; 85025; 85379; 85610; 85730; 86140; 93010; J1885; J3490

== ENCOUNTER 2022-04-17 07:48 | Emergency (ER) | payer OTHER, SELFPAY ==
[2022-04-17 08:04] VITALS: BP 136/93; PULSE 90; RESP 20; TEMP 36.7; O2SAT 100
--- NOTE | 2022-04-17 08:24 | W.ED.GENAD ---
Discharge Plan Disposition Patient Disposition: [facility] Condition: Stable Discharge Details Clinical Impression: Ischemic priapism Primary Care Provider: Marisa Kinney ED Provider: Jose Lock Home Meds and New Rx's Prescriptions: No Action No Known Home Meds Medical Decision Making 41-year-old male presents with painful erection following intercourse at approximately 4-6 this morning. He denies pain or injury during intercourse. He has not had any sores or lesions, has been urinating normally, does not take any [id number] or nonprescribed Viagra or similar. Denies cocaine. Does smoke cigarettes and drink alcohol most days. Following normal intercourse patient had persistent and painful erection. He presents afebrile with blood pressure 136/93. IV access was established, the patient kept n.p.o., given fluids and parenteral analgesia. Proximately 3 hours from erection I discussed with the patient administering dorsal penile block. No local urology available, phenyleprhine ordered to bedside & case discussed with Dr. Cardozo of the [facility] urology, and I proceeded with aspiration of a blood gas given consideration of ischemiic priapism.. The procedure was tolerated well pH 6.77, pCO2>100, p02 <13. Dr. Cardozo requested no further intervention and direct transport to the [facility] for evaluation by urology. We specifically discussed fluid aspiration or instillation of phenylephrine at [facility], which we will defer. 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 He states he has been cured of disease for 5 years time. He has been n.p.o. today since midnight. [facility] General Date/Time Provider Initiated Documentation: 04/17/22 08:03. Limitations to Documentation: no limitations. Information obtained by: patient. History of Present Illness 41 year old M presents to the emergency department with the chief complaint of Painful erection 2-1/2 hours, described as moderate, Quality is described as dull and constant, and is localized to the genitals. Patient reports no radiation. Patient started experiencing this hour(s) and it has been constant. No relieving factors improve symptom(s), No exacerbating factors reported . Patient notes other (No injury, recently well); denies chest pain, diaphoresis and fever/chills. 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 Mixed hearing loss, bilateral (Acute) Perforation of right tympanic membrane (Acute) Left flank pain (Acute 11/14/13) Renal colic on left side (Acute 11/14/13) Medical History Aortic regurgitation Ascending aortic aneurysm HLD (hyperlipidemia) Hypertension Perforated appendicitis Pericarditis Splenic vein thrombosis Social History Smoking/Tobacco Use Status: Current every day Tobacco Type: cigarettes Smoking risk assessment performed?: Yes Alcohol Intake: current Alcohol Intake frequency: 0-2 drinks per day Alcohol type: beer Drug use: Occasionally Substance use type: marijuana Do you feel safe at home: Yes Do you feel safe in your relationship?: Yes Exam Narrative Exam Narrative: GEN: awake, alert, oriented 3. Pleasant, well groomed, interactive. HEAD: Normocephalic, atraumatic ENT: Mucous membranes moist, oropharynx unremarkable, External ear exam unremarkable EYES: PERRL, EOMI NECK: Full ROM, no JONATHON, no menigismus CHEST/RESP: Nontender, clear to auscultation bilateral, no wheeze/rhonchi/rales CARDIOVASCULAR: RRR, no murmur, rub maggie. 2+ Rad pulse bilateral ABDOMEN: Soft, nontender, no mass. +Bowel sounds Testes descended bilaterally. Patient is erect with firm corpus cavernosum. EXT: Full ROM, no edema, no rash Neuro: Grossly normal neurologic exam, conversant, interactive. Psych: Speech fluent, thoughts congruent, affect anxious Course Vital Signs Vital signs: Vital Signs Temperature 36.7 C 04/17/22 08:04 Pulse 90 04/17/22 08:04 Respiratory Rate 20 04/17/22 08:04 Blood Pressure 136/93 H 04/17/22 08:04 Pulse Oximetry 100 04/17/22 08:04 Temperature 36.7 C 04/17/22 08:04 Temperature Source Temporal Artery Scan 04/17/22 08:04 Pulse 90 04/17/22 08:04 Respiratory Rate 20 04/17/22 08:04 Blood Pressure 136/93 H 04/17/22 08:04 Blood Pressure Position Sitting 04/17/22 08:04 Pulse Oximetry 100 04/17/22 08:04 Oxygen Delivery Method Room Air 04/17/22 08:04 Oxygen Flow Rate 0 04/17/22 08:04 Pain Level 9 04/17/22 08:04
[2022-04-17] MEDS: ACETAMINOPHEN 1,000 MG/100 ML BTL 400 MG IVPB (08:35)
[2022-04-17] MEDS: HYDROmorphone 2 MG/ML VIAL 1 MG IVP (08:36)
[2022-04-17] MEDS: Normal Saline 1,000 ML 1000 ML IV (08:36)
[2022-04-17 09:13] LABS: sO2 < 5 % (95-98)
[2022-04-17 09:14] LABS: FIO2L ROOM AIR L
[2022-04-17 09:16] LABS: pCO2 > 100 mmHg (35-45); pO2 < 13 mmHg (80-105)
[2022-04-17] MEDS: LORazepam 20 MG/10 ML VIAL IVP (09:54)
== END 2022-04-17 09:45 | disposition short-term general hospital (02) ==
PROVIDERS: Emergency Provider Emergency Medicine; PCP Family Medicine
DX: N48.39 Other priapism (principal); F17.210 Nicotine dependence, cigarettes, uncomplicated
CPT/HCPCS: 82805; 96361; 96374; 96375; 99285; J0131; J3490

== ENCOUNTER 2022-10-21 09:48 | Outpatient (REF) | payer SELFPAY ==
[2022-10-21 15:21] LABS: HGB 17.2 g/dL (13.5-17.5); MCH 36.3 pg (27.0-33.0); MCHC 35.8 % (32.0-36.0); MCV 101 fL (80-95); MPV 11.9 fL (8.0-11.0); Platelet Count 226 10^3/uL (130-400); RBC 4.74 10^6/uL (4.36-5.78); RDW 13.7 % (11.8-14.1); RDW-SD 51.4 fL; WBC 7.74 10^3/uL (4.4-10.8)
[2022-10-21 16:17] LABS: ALT 46 U/L (16-63); AST 40 U/L (15-37); Albumin 4.1 g/dL (3.4-5.0); Alkaline Phosphatase 93 U/L (46-116); BUN 7 mg/dL (7-18); Calcium 9.2 mg/dL (8.5-10.1); Chloride 104 mmol/L (98-107); Estimated GFR 95.18 (mL/min/1.73m2); Folate 10.7 ng/mL (8.6-20.0); Glucose 98 mg/dL (74-106); Sodium 141 mmol/L (136-145); Vitamin B12 429 pg/mL (193-986)
[2022-10-23 09:40] LABS: HIV-1/2 Ag & Ab Screen Negative (Negative)
[2022-10-25 09:57] LABS: Hepatitis C Ab w Rflx HCV PCR Negative (Negative)
== END 2022-10-21 09:49 | disposition home or self-care (01) ==
LOC: NCHCN 09:48
PROVIDERS: PCP Family Medicine; Visit Provider Family Medicine
DX: I10 Essential (primary) hypertension (principal); Z00.00 Encounter for general adult medical examination without abnormal findings; Z90.81 Acquired absence of spleen; Z11.4 Encounter for screening for human immunodeficiency virus [HIV]; Z11.59 Encounter for screening for other viral diseases
CPT/HCPCS: 80053; 85027; 86803; 87389; 82607; 82746

== ENCOUNTER 2023-03-24 19:14 | Observation (INO) | payer MEDICAID, SELFPAY ==
[2023-03-24] VITALS (13 sets, daily range): BP systolic 140–147; BP diastolic 78–94; PULSE 56–84; RESP 12–22; TEMP 36.8; O2SAT 98–100
--- NOTE | 2023-03-24 19:15 | RT.EKG_ITS ---
APPROVED REPORT Exam: Resting ECG Reason for Exam: dizziness/blurred vision Patient Location: E HR:70 bpm ECG Measurements Heart Rate 70 AXIS NE 131 P 62 QRSd 102 QRS 35 QT 377 T 207 QTc 408 Conclusion Sinus rhythm...normal P axis, V-rate 60- 99 Probable LVH with secondary repol abnrm...multiple LVH criteria sinus rhtyhm, normal axis, normal intervals, t wave inversions and st depressions laterallly
--- NOTE | 2023-03-24 19:30 | DI.CT_ITS ---
Exam(s) CT ABDOMEN PELVIS WO EXAM: CT ABDOMEN PELVIS WO CLINICAL HISTORY: abd pain. TECHNIQUE: Imaging Protocol: Axial computed tomography images with coronal and sagittal reformatted images were created and reviewed. Oral: no COMPARISON: CT CT THORAX ABD/PEL CTA from 02/08/[address] BRAIN NECK CTA from 09/29/[address] THORAX ABD/PEL CTA from 09/29/2021 FINDINGS: ABDOMEN: Lung Bases: Normal where visualized. Liver: Normal density. No measurable mass. Gallbladder and biliary tract: No radiodense calculus or dilation. Pancreas: Normal density, no abnormal calcifications or inflammatory process. Spleen: Normal. Kidneys: Normal size, contour and axis. No radiodense stones or obstructive uropathy. No masses seen. Adrenal glands: No masses seen. Lymph nodes: Within normal limits. Abdominal Aorta: Abdominal portion non-dilated. PELVIS: Bladder: Nearly empty. Not well evaluated. Bowel: No obstruction or bowel wall thickening. Status post appendectomy. Areas of apparent wall thi ckening in the distal moist likely represent contraction. Peritoneal cavity: No ascites, collection or mesenteric inflammatory response. Reproductive organs: Within normal limits. Bones: Within normal limits. IMPRESSION: No acute abnormality. Questionable area of wall thickening in the sigmoid colon likely represents an area of contraction. Colonoscopy could be considered for further evaluation. RADIATION DOSE DELIVERED: Total DLP DATA REPOSITORY: All CT scans at this facility are submitted to the National Radiology Data Registry (NRDR) Dose Index Registry (DIR) with the [employer] (A[employer]). RADIATION OPTIMIZATION: All CT scans at this facility use at least one of these dose optimization te chniques: automated exposure control; mA and/or kV adjustment per patient size (includes targeted exa ms where dose is matched to clinical indication); or iterative reconstruction.
[2023-03-24] MEDS: Normal Saline 1,000 ML 1000 ML IV (19:42)
[2023-03-24 19:45] LABS: Abs Immature Grans 0.06 10^3/uL (0.0-0.06); Absolute Basophil Count 0.08 10^3/uL (0.0-0.2); Absolute Eosinophil Count 0.14 10^3/uL (0.0-0.7); Absolute Lymphocyte Count 3.39 10^3/uL (1.2-3.4); Absolute Neutrophil Count 8.99 10^3/uL (1.2-6.7); Basophils % 0.6; HCT 45.3 % (40.0-50.0); HGB 16.2 g/dL (13.5-17.5); Immature Grans % 0.4; Lymphocytes % 24.3; MCH 35.6 pg (27.0-33.0); MCHC 35.8 % (32.0-36.0); MCV 100 fL (80-95); MPV 9.7 fL (8.0-11.0); Monocytes % 9.3; Neutrophils % 64.4; Platelet Count 253 10^3/uL (130-400); RBC 4.55 10^6/uL (4.36-5.78); RDW 12.6 % (11.8-14.1); RDW-SD 46.3 fL; WBC 13.96 10^3/uL (4.4-10.8)
[2023-03-24 20:06] LABS: ALT 47 U/L (16-63); AST 31 U/L (15-37); Albumin 4.4 g/dL (3.4-5.0); Alkaline Phosphatase 90 U/L (46-116); Anion Gap 9.3 mmol/L (3-11); BUN 9 mg/dL (7-18); Bilirubin, Total 1.4 mg/dL (0.2-1.0); CO2 29.7 mmol/L (21.0-32.0); Calcium 9.3 mg/dL (8.5-10.1); Chloride 99 mmol/L (98-107); Estimated GFR 95.18 (mL/min/1.73m2); Glucose 104 mg/dL (74-106); Sodium 138 mmol/L (136-145); Total Protein 7.9 g/dL (6.4-8.2)
[2023-03-24 20:11] LABS: Potassium 2.7 mmol/L (3.5-5.1)
[2023-03-24 20:30] LABS: ESR 2 mm/hr (0-15)
[2023-03-24 20:32] LABS: Bilirubin Small (Negative); Blood Trace-intact (Negative); Clarity Clear (Clear); Glucose Negative (Negative); Ketones 15 mg/dL (Negative); Leukocyte Esterase Negative (Negative); Nitrite Negative (Negative); Specific Gravity >= 1.030 (1.005-1.025); Urobilinogen 0.2 mg/dL (Up to 0.2); pH 6.5 (5-8)
[2023-03-24 20:33] LABS: Bacteria Rare HPF (Negative); C & S Indicated? No; Casts Negative LPF (Negative); Crystals Negative HPF (Negative); Epithelial Cells Few HPF (Negative); Mucus Negative (Negative); WBC Negative HPF (0-5)
[2023-03-24 20:38] LABS: C-Reactive Protein 0.06 mg/dL (0.0-0.3)
--- NOTE | 2023-03-24 20:57 | W.ED.GENAD ---
Discharge Plan Disposition Patient Disposition: Admit to 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 Has been in his usual state of health up until 2 days ago when he developed bloody diarrhea he is reporting dizziness with visual changes has had no similar symptoms. Initially vital signs are within normal limits. Will obtain IV access bolused with IV fluid check type and screen CBC CMP he is also reporting urinary symptoms so we will add UA with postvoid bladder scan. CT scan has been obtained as he is reporting abdominal discomfort and cramping. He denies history of diverticulitis. He has not had a follow-up colonoscopy he states for many years. Labs are reviewed and H&H is stable which is reassuring as he said his symptoms for 2 days. CAT scan results were reviewed and discussed with Dr. Kline from general surgery. He has been started on potassium replacement with 10 mEq IV and given [address] Kline has agreed to admit him overnight for observation with either plan for outpatient colonoscopy or if ongoing bleeding will prep and complete on this admission patient is agreeable with this plan report and care of patient has been handed off to Dr. Kline for observation admission to the medical surgical unit Medical Records Medical records reviewed: Yes I reviewed the patient's medical records. Imaging Data Radiologic Study: Imaging: CT Scan Radiologist's impression: Exam(s) PROCEDURE INFORMATION: Exam: CT Abdomen And Pelvis Without Contrast Exam date and time: 03/24/2023 8:20 PM Age: 42 years old Clinical indication: Abdominal pain; Localized; Lower; Prior surgery; Surgery date: 6+ months; Surgery type: Appendectomy, gallbladder removed, spleen removed; Patient HX: H/o cancer; Additional info: Lower abd pain TECHNIQUE: Imaging protocol: Computed tomography of the abdomen and pelvis without contrast. Radiation optimization: All CT scans at this facility use at least one of these dose optimization techniques: automated exposure control; mA and/or kV adjustment per patient size (includes targeted exams where dose is matched to clinical indication); or iterative reconstruction. COMPARISON: CT THORAX ABD/PEL CTA 09/29/2021 10:40 AM FINDINGS: Heart: There is diminished attenuation of the cardiac chambers in comparison to the myocardium which can be seen with anemia. Correlate clinically. Diaphragm: Small hiatal hernia. Liver: There is diffuse decrease in hepatic parenchymal density, consistent with mild fatty infiltration. No mass. Gallbladder and bile ducts: Gallbladder has been resected. No biliary ductal dilatation. Pancreas: Normal. No ductal dilation. Spleen: Status post splenectomy. Adrenal glands: Normal. No mass. Kidneys and ureters: Normal. No hydronephrosis. Stomach and bowel: Stomach contracted, limiting evaluation for wall thickening. No dilated loops of small bowel or colonic dilatation. There is a 3 cm long, contracted segment of sigmoid colon with wall thickening, -. Note is made of 2 areas of luminal constriction in sigmoid on September 2021 study, and . Appendix: Prior appendectomy. Intraperitoneal space: Unremarkable. No free air. No significant fluid collection. Vasculature: Unremarkable. No abdominal aortic aneurysm. Lymph nodes: Unremarkable. No enlarged lymph nodes. Urinary bladder: Unremarkable as visualized. Reproductive: Unremarkable as visualized. Bones/joints: Unremarkable. No acute fracture. Soft tissues: Unremarkable. IMPRESSION: Contracted segment of sigmoid colon could be due to peristalsis at the time of examination, stricture or malignancy. Correlate clinically as to need for further evaluation with colonoscopy. Dictated and Authenticated by: Garrett Gregory MD. Lab Data Lab results reviewed: Yes I reviewed the patient's lab results. Labs: Laboratory Results - last 24 hr 03/24/23 03/24/23 03/24/23 19:34 19:34 19:34 WBC 13.96 H RBC 4.55 Hgb 16.2 Hct 45.3 MCV 100 H MCH 35.6 H MCHC 35.8 RDW 12.6 Plt Count 253 MPV 9.7 Immature Gran % 0.4 Neutrophils % 64.4 Lymphocytes % 24.3 Monocytes % 9.3 Eosinophils % 1.0 Basophils % 0.6 Nucleated RBC % 0.0 Absolute Neutrophils 8.99 H Absolute Lymphocytes 3.39 Absolute Monocytes 1.30 H Absolute Eosinophils 0.14 Absolute Basophils 0.08 ESR Sodium 138 Potassium 2.7 L* Chloride 99 Carbon Dioxide 29.7 Anion Gap 9.3 BUN 9 Creatinine 1.0 Est GFR (CKD-EPI 2020) 95.18 Glucose 104 Calcium 9.3 Magnesium 2.0 Total Bilirubin 1.4 H AST 31 ALT 47 Alkaline Phosphatase 90 C-Reactive Protein Total Protein 7.9 Albumin 4.4 Urine Color Urine Clarity Urine pH Ur Specific [place] Urine Protein Urine Ketones Urine Blood Urine Nitrite Urine Bilirubin Urine Urobilinogen Ur Leukocyte Esterase Urine RBC Urine WBC Ur Epithelial Cells Urine Crystals Urine Bacteria Urine Casts Urine Mucus Ur Culture Indicated? Urine Glucose Patient ABO/Rh O Positive Antibody Screen NEGATIVE 03/24/23 03/24/23 03/24/23 19:34 19:34 20:15 WBC RBC Hgb Hct MCV MCH MCHC RDW Plt Count MPV Immature Gran % Neutrophils % Lymphocytes % Monocytes % Eosinophils % Basophils % Nucleated RBC % Absolute Neutrophils Absolute Lymphocytes Absolute Monocytes Absolute Eosinophils Absolute Basophils ESR 2 Sodium Potassium Chloride Carbon Dioxide Anion Gap BUN Creatinine Est GFR (CKD-EPI 2020) Glucose Calcium Magnesium Total Bilirubin AST ALT Alkaline Phosphatase C-Reactive Protein 0.06 Total Protein Albumin Urine Color Yellow Urine Clarity Clear Urine pH 6.5 Ur Specific [place] >= 1.030 H Urine Protein Negative Urine Ketones 15 H Urine Blood Trace-intact H Urine Nitrite Negative Urine Bilirubin Small H Urine Urobilinogen 0.2 Ur Leukocyte Esterase Negative Urine RBC 3-5 H Urine WBC Negative Ur Epithelial Cells Few Urine Crystals Negative Urine Bacteria Rare Urine Casts Negative Urine Mucus Negative Ur Culture Indicated? No Urine Glucose Negative Patient ABO/Rh Antibody Screen HPI General Mode of arrival: ambulatory. Date/Time Provider Initiated Documentation: 03/24/23 19:15. Limitations to Documentation: no limitations. Information obtained by: patient. HPI Narrative: 42-year-old male patient history of of appendectomy back in 2011 reports that pathology was concerning for malignancy so he had additional abdominal surgery including cholecystectomy and additional resection. He states that he has been in his usual state of health up until 2 days ago when he developed bloody diarrhea. He reports 3 episodes today. He states he has felt lightheaded. He denies similar history. He has had no fever or chills he is reporting abdominal cramps he also reports that he has had difficulty initiating urinary stream which is new. 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 Mixed hearing loss, bilateral (Acute) Perforation of right tympanic membrane (Acute) Left flank pain (Acute 11/14/13) Renal colic on left side (Acute 11/14/13) Medical History Aortic regurgitation Ascending aortic aneurysm HLD (hyperlipidemia) Hypertension Perforated appendicitis Pericarditis Splenic vein thrombosis Social History Smoking/Tobacco Use Status: Current every day Tobacco Type: cigarettes Smoking risk assessment performed?: Yes Alcohol Intake: former Drug use: Occasionally Substance use type: marijuana Do you feel safe at home: Yes Do you feel safe in your relationship?: Yes Course Vital Signs Vital signs: Vital Signs Temperature 36.8 C 03/24/23 19:18 Pulse 75 03/24/23 19:18 Respiratory Rate 15 03/24/23 19:18 Blood Pressure 147/94 H 03/24/23 19:18 Pulse Oximetry 98 03/24/23 19:18 Temperature 36.8 C 03/24/23 19:18 Temperature Source Tympanic 03/24/23 19:18 Pulse 75 03/24/23 19:18 Respiratory Rate 15 03/24/23 19:18 Blood Pressure 147/94 H 03/24/23 19:18 Blood Pressure Position Sitting 03/24/23 19:18 Pulse Oximetry 98 03/24/23 19:18 Oxygen Delivery Method Room Air 03/24/23 19:18 Oxygen Flow Rate 0 03/24/23 19:18 Pain Level 6 03/24/23 19:24 Lab/Test Results Lab/Test Results: Laboratory Tests Range/Units 03/24/23 03/24/23 03/24/23 19:34 19:34 19:34 WBC (4.4-10.8) 10^3/uL 13.96 H RBC (4.36-5.78) 10^6/uL 4.55 Hgb (13.5-17.5) g/dL 16.2 Hct (40.0-50.0) % 45.3 MCV (80-95) fL 100 H MCH (27.0-33.0) pg 35.6 H MCHC (32.0-36.0) % 35.8 RDW (11.8-14.1) % 12.6 Plt Count (130-400) 10^3/uL 253 MPV (8.0-11.0) fL 9.7 Immature Gran % 0.4 Neutrophils % 64.4 Lymphocytes % 24.3 Monocytes % 9.3 Eosinophils % 1.0 Basophils % 0.6 Nucleated RBC % (0.0-0.3) % 0.0 Absolute Neutrophils (1.2-6.7) 10^3/uL 8.99 H Absolute Lymphocytes (1.2-3.4) 10^3/uL 3.39 Absolute Monocytes (0.1-0.8) 10^3/uL 1.30 H Absolute Eosinophils (0.0-0.7) 10^3/uL 0.14 Absolute Basophils (0.0-0.2) 10^3/uL 0.08 ESR (0-15) mm/hr Sodium (136-145) mmol/L 138 Potassium (3.5-5.1) mmol/L 2.7 L* Chloride (98-107) mmol/L 99 Carbon Dioxide (21.0-32.0) mmol/L 29.7 Anion Gap (3-11) mmol/L 9.3 BUN (7-18) mg/dL 9 Creatinine (0.70-1.30) mg/dL 1.0 Est GFR (CKD-EPI 2020) (mL/min/1.73m2) 95.18 Glucose (74-106) mg/dL 104 Calcium (8.5-10.1) mg/dL 9.3 Magnesium (1.8-2.4) mg/dL 2.0 Total Bilirubin (0.2-1.0) mg/dL 1.4 H AST (15-37) U/L 31 ALT (16-63) U/L 47 Alkaline Phosphatase (46-116) U/L 90 C-Reactive Protein (0.0-0.3) mg/dL Total Protein (6.4-8.2) g/dL 7.9 Albumin (3.4-5.0) g/dL 4.4 Urine Color (Yellow) Urine Clarity (Clear) Urine pH (5-8) Ur Specific [place] (1.005-1.025) Urine Protein (Negative) mg/dL Urine Ketones (Negative) mg/dL Urine Blood (Negative) Urine Nitrite (Negative) Urine Bilirubin (Negative) Urine Urobilinogen (Up to 0.2) mg/dL Ur Leukocyte Esterase (Negative) Urine RBC (0-2) HPF Urine WBC (0-5) HPF Ur Epithelial Cells (Negative) HPF Urine Crystals (Negative) HPF Urine Bacteria (Negative) HPF Urine Casts (Negative) LPF Urine Mucus (Negative) Ur Culture Indicated? Urine Glucose (Negative) mg/dL Patient ABO/Rh O Positive Antibody Screen NEGATIVE Range/Units 03/24/23 03/24/23 03/24/23 19:34 19:34 20:15 WBC (4.4-10.8) 10^3/uL RBC (4.36-5.78) 10^6/uL Hgb (13.5-17.5) g/dL Hct (40.0-50.0) % MCV (80-95) fL MCH (27.0-33.0) pg MCHC (32.0-36.0) % RDW (11.8-14.1) % Plt Count (130-400) 10^3/uL MPV (8.0-11.0) fL Immature Gran % Neutrophils % Lymphocytes % Monocytes % Eosinophils % Basophils % Nucleated RBC % (0.0-0.3) % Absolute Neutrophils (1.2-6.7) 10^3/uL Absolute Lymphocytes (1.2-3.4) 10^3/uL Absolute Monocytes (0.1-0.8) 10^3/uL Absolute Eosinophils (0.0-0.7) 10^3/uL Absolute Basophils (0.0-0.2) 10^3/uL ESR (0-15) mm/hr 2 Sodium (136-145) mmol/L Potassium (3.5-5.1) mmol/L Chloride (98-107) mmol/L Carbon Dioxide (21.0-32.0) mmol/L Anion Gap (3-11) mmol/L BUN (7-18) mg/dL Creatinine (0.70-1.30) mg/dL Est GFR (CKD-EPI 2020) (mL/min/1.73m2) Glucose (74-106) mg/dL Calcium (8.5-10.1) mg/dL Magnesium (1.8-2.4) mg/dL Total Bilirubin (0.2-1.0) mg/dL AST (15-37) U/L ALT (16-63) U/L Alkaline Phosphatase (46-116) U/L C-Reactive Protein (0.0-0.3) mg/dL 0.06 Total Protein (6.4-8.2) g/dL Albumin (3.4-5.0) g/dL Urine Color (Yellow) Yellow Urine Clarity (Clear) Clear Urine pH (5-8) 6.5 Ur Specific [place] (1.005-1.025) >= 1.030 H Urine Protein (Negative) mg/dL Negative Urine Ketones (Negative) mg/dL 15 H Urine Blood (Negative) Trace-intact H Urine Nitrite (Negative) Negative Urine Bilirubin (Negative) Small H Urine Urobilinogen (Up to 0.2) mg/dL 0.2 Ur Leukocyte Esterase (Negative) Negative Urine RBC (0-2) HPF 3-5 H Urine WBC (0-5) HPF Negative Ur Epithelial Cells (Negative) HPF Few Urine Crystals (Negative) HPF Negative Urine Bacteria (Negative) HPF Rare Urine Casts (Negative) LPF Negative Urine Mucus (Negative) Negative Ur Culture Indicated? No Urine Glucose (Negative) mg/dL Negative Patient ABO/Rh Antibody Screen
[2023-03-24] MEDS: Potassium Chloride 20 MEQ TABCR 40 MEQ PO (21:06)
[2023-03-24] MEDS: POTASSIUM CHLORIDE 10 MEQ/100 ML BAG 100 MEQ IVPB (21:06)
--- NOTE | 2023-03-24 21:11 | W.PM.HP.N ---
Date of service: 03/24/23 Time of Service: 21:11 Assessment and Plan Assessment and plan (1) Rectal bleeding: Status: Acute Assessment and plan: We talked about the natural history of rectal bleeding, with a differential diagnosis that is most likely for diverticulosis, or internal hemorrhoids. Since he was admitted last night, his hemodynamics have all been favorable, he has had no more episodes of bloody bowel movements. We will repeat a CBC this morning, and advance his diet today. Assuming he does well, we can discharge him home with plan for outpatient colonoscopy History of Present Illness History of Present Illness Chief Complaint: Hematochezia Narrative: Alpesh is 42 years old. He comes to the ER complaining of bloody bowel movements. He said he has been in his usual state of health up to about 72 hours ago. On that day, he started to feel little bit lethargic, perhaps a little lightheaded and dizzy. Few hours later, he had a bloody bowel movement. He describes it as red blood mixed in with the stool. He also describes some left lower abdominal crampy type pain associated with a bowel movement. Since that time, he had approximately 3-4 more episodes. On review of systems, the only significant finding is that he had a mild decrease in his appetite over the past year or so. He tells me he is basically has a loss of his desire to eat. However, this is associated with a little bit of depression associated with the passing of his parents, as well as a divorce. He has 2 adolescent twin sons who are in good health. He denies any allergies. 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 He was treated with HIPEC therapy about 10 years ago. He tells me he had CAT scans and colonoscopies for the first couple years thereafter. Those were all normal. He has not undergone any colonoscopy in about 5 years. Review of Systems Constitutional Constitutional: Denies body ache(s), Reports fatigue, Denies fever(s), Reports malaise, Reports poor appetite and Reports weight loss Eyes Eyes: Reports system reviewed and no additional complaints, except as documented ENT Ears, Nose, Mouth, and Throat: Reports system reviewed and no additional complaints, except as documented Cardiovascular Cardiovascular: Denies chest pain and Denies dyspnea Respiratory Respiratory: Denies chest congestion, Denies cough and Denies dyspnea Gastrointestinal Gastrointestinal: Reports change in bowel habits, Reports change in stool character, Reports cramping, Denies dyspepsia, Denies heartburn and Denies vomiting Genitourinary Comments: He has a history of an unexplained priapism that required surgical drainage Musculoskeletal Musculoskeletal: Denies muscle cramps and Denies muscle weakness Neurologic Neurologic: Reports behavioral changes Psychiatric Psychiatric: Reports behavioral changes, Reports change in appetite, Reports depression, Denies homicidal ideation and Denies suicidal ideation Endocrine Endocrine: Reports fatigue Hematologic/Lymphatic Hematologic/Lymphatic: Denies easy bleeding and Denies easy bruising PFSH All Active Problems Rectal bleeding (Acute) Decreased hearing of right ear (Acute) Subjective 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 Mixed hearing loss, bilateral (Acute) Perforation of right tympanic membrane (Acute) Left flank pain (Acute 11/14/13) Renal colic on left side (Acute 11/14/13) Medical History Aortic regurgitation Ascending aortic aneurysm HLD (hyperlipidemia) Hypertension Perforated appendicitis Pericarditis Splenic vein thrombosis Social History Smoking/Tobacco Use Status: Current every day Tobacco Type: cigarettes Smoking risk assessment performed?: Yes Alcohol Intake: former Drug use: Occasionally Substance use type: marijuana Housing: house Do you feel safe at home: Yes Do you feel safe in your relationship?: Yes Meds Allergies and Home Medications Allergies Allergy/AdvReac Type Severity Reaction Status Date / Time No Known Allergies Allergy Verified 04/17/22 08:05 Home Medications Medication Instructions Recorded Confirmed Type Unknown [No Known Home Meds] 04/17/22 04/17/22 History Exam Const General: cooperative, healthy appearing and comfortable Orientation: alert, awake and oriented x3 HENMT Head: normal to inspection Eyes General: appearance normal, both eyes and all related structures Neck Neck: normal visual inspection, full ROM and no lymphadenopathy GI Inspection: no edema, non-distended and scar Palpation: soft, no guarding, no hernias, no masses and nontender Percussion: normal to percussion Auscultation: normal bowel sounds Other: External anorectal exam is normal. There are no masses. There are no external hemorrhoids. Neuro General: patient alert, patient awake and patient oriented x3 Extrem General: normal to inspection Psych Appearance: grossly normal Speech and Movement: speech and movement normal Mood: congruent mood Results Labs 03/24/23 19:34 03/24/23 19:34 Labs: Laboratory Results - last 24 hr 03/24/23 03/24/23 03/24/23 19:34 19:34 19:34 WBC 13.96 H RBC 4.55 Hgb 16.2 Hct 45.3 MCV 100 H MCH 35.6 H MCHC 35.8 RDW 12.6 Plt Count 253 MPV 9.7 Immature Gran % 0.4 Neutrophils % 64.4 Lymphocytes % 24.3 Monocytes % 9.3 Eosinophils % 1.0 Basophils % 0.6 Nucleated RBC % 0.0 Absolute Neutrophils 8.99 H Absolute Lymphocytes 3.39 Absolute Monocytes 1.30 H Absolute Eosinophils 0.14 Absolute Basophils 0.08 ESR Sodium 138 Potassium 2.7 L* Chloride 99 Carbon Dioxide 29.7 Anion Gap 9.3 BUN 9 Creatinine 1.0 Est GFR (CKD-EPI 2020) 95.18 Glucose 104 Calcium 9.3 Magnesium 2.0 Total Bilirubin 1.4 H AST 31 ALT 47 Alkaline Phosphatase 90 C-Reactive Protein Total Protein 7.9 Albumin 4.4 Urine Color Urine Clarity Urine pH Ur Specific [place] Urine Protein Urine Ketones Urine Blood Urine Nitrite Urine Bilirubin Urine Urobilinogen Ur Leukocyte Esterase Urine RBC Urine WBC Ur Epithelial Cells Urine Crystals Urine Bacteria Urine Casts Urine Mucus Ur Culture Indicated? Urine Glucose Patient ABO/Rh O Positive Antibody Screen NEGATIVE 03/24/23 03/24/23 03/24/23 19:34 19:34 20:15 WBC RBC Hgb Hct MCV MCH MCHC RDW Plt Count MPV Immature Gran % Neutrophils % Lymphocytes % Monocytes % Eosinophils % Basophils % Nucleated RBC % Absolute Neutrophils Absolute Lymphocytes Absolute Monocytes Absolute Eosinophils Absolute Basophils ESR 2 Sodium Potassium Chloride Carbon Dioxide Anion Gap BUN Creatinine Est GFR (CKD-EPI 2020) Glucose Calcium Magnesium Total Bilirubin AST ALT Alkaline Phosphatase C-Reactive Protein 0.06 Total Protein Albumin Urine Color Yellow Urine Clarity Clear Urine pH 6.5 Ur Specific [place] >= 1.030 H Urine Protein Negative Urine Ketones 15 H Urine Blood Trace-intact H Urine Nitrite Negative Urine Bilirubin Small H Urine Urobilinogen 0.2 Ur Leukocyte Esterase Negative Urine RBC 3-5 H Urine WBC Negative Ur Epithelial Cells Few Urine Crystals Negative Urine Bacteria Rare Urine Casts Negative Urine Mucus Negative Ur Culture Indicated? No Urine Glucose Negative Patient ABO/Rh Antibody Screen Last Vital Signs Temp 98.2 F 03/24/23 19:18 Pulse 75 03/24/23 19:18 Resp 15 03/24/23 19:18 BP 147/94 H 03/24/23 19:18 Pulse Ox 98 03/24/23 19:18 Time Spent Time spent with Patient: 40-54 minutes Time was spent: preparing to see the patient(eg.review tests), obtaining and/or reviewing separately otained hiistory, ordering medications,tests, procedures, indepentently interpreting results and counseling the patient
[2023-03-24] MEDS: Pantoprazole 40 MG VIAL IVP (22:33)
[2023-03-24] MEDS: Lactated Ringers 1,000 ML 75 ML IV (22:33)
[2023-03-25 06:20] VITALS: BP 135/65; PULSE 57; RESP 16; TEMP 36.5; O2SAT 94
[2023-03-25] MEDS: Psyllium PKT 1 EACH PO (07:53)
--- NOTE | 2023-03-25 08:30 | W.PM.PROGNOT ---
Date of Service Date of service: 03/25/23 Assessment and Plan Assessment and plan (1) Rectal bleeding: Status: Acute (2) Mixed hearing loss, bilateral: Status: Acute (3) Aortic regurgitation: (4) Ascending aortic aneurysm: (5) HLD (hyperlipidemia): (6) Hypertension: (7) Hiatal hernia: Status: Chronic (8) Fatty liver: Status: Acute Objective Last Vital Signs Temp 36.5 C 03/25/23 06:20 Pulse 57 L 03/25/23 06:20 Resp 16 03/25/23 06:20 BP 135/65 03/25/23 06:20 Pulse Ox 94 03/25/23 06:20 Laboratory Results - last 24 hr 03/24/23 03/24/23 03/24/23 19:34 19:34 19:34 WBC 13.96 H RBC 4.55 Hgb 16.2 Hct 45.3 MCV 100 H MCH 35.6 H MCHC 35.8 RDW 12.6 Plt Count 253 MPV 9.7 Immature Gran % 0.4 Neutrophils % 64.4 Lymphocytes % 24.3 Monocytes % 9.3 Eosinophils % 1.0 Basophils % 0.6 Nucleated RBC % 0.0 Absolute Neutrophils 8.99 H Absolute Lymphocytes 3.39 Absolute Monocytes 1.30 H Absolute Eosinophils 0.14 Absolute Basophils 0.08 ESR Sodium 138 Potassium 2.7 L* Chloride 99 Carbon Dioxide 29.7 Anion Gap 9.3 BUN 9 Creatinine 1.0 Est GFR (CKD-EPI 2020) 95.18 Glucose 104 Calcium 9.3 Magnesium 2.0 Total Bilirubin 1.4 H AST 31 ALT 47 Alkaline Phosphatase 90 C-Reactive Protein Total Protein 7.9 Albumin 4.4 Urine Color Urine Clarity Urine pH Ur Specific [place] Urine Protein Urine Ketones Urine Blood Urine Nitrite Urine Bilirubin Urine Urobilinogen Ur Leukocyte Esterase Urine RBC Urine WBC Ur Epithelial Cells Urine Crystals Urine Bacteria Urine Casts Urine Mucus Ur Culture Indicated? Urine Glucose Patient ABO/Rh O Positive Antibody Screen NEGATIVE 03/24/23 03/24/23 03/24/23 19:34 19:34 20:15 WBC RBC Hgb Hct MCV MCH MCHC RDW Plt Count MPV Immature Gran % Neutrophils % Lymphocytes % Monocytes % Eosinophils % Basophils % Nucleated RBC % Absolute Neutrophils Absolute Lymphocytes Absolute Monocytes Absolute Eosinophils Absolute Basophils ESR 2 Sodium Potassium Chloride Carbon Dioxide Anion Gap BUN Creatinine Est GFR (CKD-EPI 2020) Glucose Calcium Magnesium Total Bilirubin AST ALT Alkaline Phosphatase C-Reactive Protein 0.06 Total Protein Albumin Urine Color Yellow Urine Clarity Clear Urine pH 6.5 Ur Specific [place] >= 1.030 H Urine Protein Negative Urine Ketones 15 H Urine Blood Trace-intact H Urine Nitrite Negative Urine Bilirubin Small H Urine Urobilinogen 0.2 Ur Leukocyte Esterase Negative Urine RBC 3-5 H Urine WBC Negative Ur Epithelial Cells Few Urine Crystals Negative Urine Bacteria Rare Urine Casts Negative Urine Mucus Negative Ur Culture Indicated? No Urine Glucose Negative Patient ABO/Rh Antibody Screen
[2023-03-25 09:14] LABS: Abs Immature Grans 0.03 10^3/uL (0.0-0.06); Absolute Basophil Count 0.05 10^3/uL (0.0-0.2); Absolute Eosinophil Count 0.17 10^3/uL (0.0-0.7); Absolute Lymphocyte Count 2.14 10^3/uL (1.2-3.4); Absolute Monocyte Count 1.14 10^3/uL (0.1-0.8); Basophils % 0.5; Eosinophils % 1.7; HCT 40.9 % (40.0-50.0); HGB 14.5 g/dL (13.5-17.5); Immature Grans % 0.3; MCH 35.9 pg (27.0-33.0); MCHC 35.5 % (32.0-36.0); MCV 101 fL (80-95); MPV 10.4 fL (8.0-11.0); Monocytes % 11.7; Neutrophils % 63.8; Platelet Count 244 10^3/uL (130-400); RBC 4.04 10^6/uL (4.36-5.78); RDW 12.7 % (11.8-14.1); RDW-SD 47.1 fL; WBC 9.73 10^3/uL (4.4-10.8)
--- NOTE | 2023-03-25 09:30 | DSE_ITS ---
Date of service: 03/25/23 Time of Service: 09:30 DS: Diagnosis Discharge Diagnosis (1) Rectal bleeding: Status: Acute (2) Mixed hearing loss, bilateral: Status: Acute (3) Aortic regurgitation: (4) Ascending aortic aneurysm: (5) HLD (hyperlipidemia): (6) Hypertension: (7) Hiatal hernia: Status: Chronic (8) Fatty liver: Status: Acute Discharge Plan Disposition Condition: Good Discharge Details Reason For Visit: GI bleeding Admit Date/Time: 03/24/23 21:08 Admit Provider: Marcos Kline Attending Provider: Marcos Kline Primary Care Provider: Marisa Kinney [facility] Course Hospital Course: Alpesh is 42 years old, he came to the hospital with approximately 3 days of intermittent hematochezia, and some mild lightheadedness. In the emergency department, his hemodynamics were favorable, and he had a mild leukocytosis, but otherwise normal hemoglobin and platelet count. He does not take any type of antiplatelet or anticoagulant therapy. He was admitted for observation. He had no more episodes of hematochezia during his stay. Follow-up hemoglobin was mildly decreased, but within acceptable limits. We discussed the differential diagnosis for his hematochezia, and made plans for an outpatient follow-up colonoscopy. Home Meds and New Rx's Prescriptions: No Action No Known Home Meds Discharge Instructions Instructions: Rectal Bleeding (DC) Additional Instructions: Alpesh, it was very nice to meet you in the hospital, and hopefully we can get you feeling better over the next few weeks. Like we talked about while you are here, your vital signs and lab tests were reassuring. Hopefully, the most likely explanation for the bleeding is diverticulosis or hemorrhoids. We are making arrangements to have you follow-up in the office to schedule a colonoscopy. In the meantime, I would encourage you to keep to a simple diet, that easily digestible. You should add some psyllium (this is the active ingredient in things like Metamucil, Senokot, and FiberCon), to your diet. I would start with 1 tablespoon every day, your bowel movements should become larger and softer. If you do not notice any difference within 48 hours, increase to 2 tablespoons every day. This can be taken as once in the morning and once in the evening. If you notice that the bleeding becomes more frequent, or more uncomfortable, please call our office, and we can make arrangements to schedule things in a more expedited fashion. Referrals: Marcos Kline MD [ [facility] STAFF PHYSICIAN] - (April 13 at 9:30) Activity:: Activity as Tolerated Equipment/Supplies:: No Equipment Needed Diet:: High-fiber DS: Summary Time Spent with Patient providing and/or coordinating discharge services: Less than 30 minutes Status at Discharge Functional status at discharge: independent ambulation Overall status at discharge: patient is back to baseline Mental Status: mental status grossly normal Speech and Movement: speech and movement normal Mood: congruent mood Affect: normal affect Exam Const General: cooperative, healthy appearing and no acute distress GI Inspection: normal to inspection Palpation: soft Rectal Exam: visual inspection normal, normal sphincter tone and No fissure Psych Mental Status: mental status grossly normal Speech and Movement: speech and movement normal Mood: congruent mood Affect: normal affect DS: Data Vitals/I&O Vitals and I&O: Vital Signs Temperature 97.7 F 03/25/23 06:20 Temperature Source Tympanic 03/25/23 06:20 Pulse 57 L 03/25/23 06:20 Pulse Rhythm Regular 03/25/23 07:55 Pulse 74 03/24/23 20:10 Respiratory Rate 16 03/25/23 06:20 Respiratory Effort Normal 03/25/23 07:55 Respiratory Depth Normal 03/25/23 07:55 Respiratory Pattern Normal 03/25/23 07:55 Blood Pressure 135/65 03/25/23 06:20 Blood Pressure Mean 93 03/24/23 20:01 Blood Pressure Position Sitting 03/24/23 19:18 Pulse Oximetry 94 03/25/23 06:20 Oxygen Delivery Method Room Air 03/25/23 06:20 Oxygen Flow Rate 0 03/25/23 06:20 Pain Level 5 03/24/23 21:44 Intake & Output 03/24/23 03/24/23 03/25/23 11:59 23:59 11:59 Intake Total 1000 / 1000 Balance 1000 / 1000 Weight 190 lb Intake: IV 1000 / 1000 Other: Comment post void residual Emesis Description None Data Completed and Pending Labs on day of discharge: Labs from last 24 hours 03/25/23 03/24/23 03/24/23 06:25 20:15 19:34 WBC 9.73 RBC 4.04 L Hgb 14.5 Hct 40.9 MCV 101 H MCH 35.9 H MCHC 35.5 RDW 12.7 Plt Count 244 MPV 10.4 Immature Gran % 0.3 Neutrophils % 63.8 Lymphocytes % 22.0 Monocytes % 11.7 Eosinophils % 1.7 Basophils % 0.5 Nucleated RBC % 0.0 Absolute Neutrophils 6.20 Absolute Lymphocytes 2.14 Absolute Monocytes 1.14 H Absolute Eosinophils 0.17 Absolute Basophils 0.05 ESR 2 Sodium Potassium Chloride Carbon Dioxide Anion Gap BUN Creatinine Est GFR (CKD-EPI 2020) Glucose Calcium Magnesium Total Bilirubin AST ALT Alkaline Phosphatase C-Reactive Protein Total Protein Albumin Urine Color Yellow Urine Clarity Clear Urine pH 6.5 Ur Specific [place] >= 1.030 H Urine Protein Negative Urine Ketones 15 H Urine Blood Trace-intact H Urine Nitrite Negative Urine Bilirubin Small H Urine Urobilinogen 0.2 Ur Leukocyte Esterase Negative Urine RBC 3-5 H Urine WBC Negative Ur Epithelial Cells Few Urine Crystals Negative Urine Bacteria Rare Urine Casts Negative Urine Mucus Negative Ur Culture Indicated? No Urine Glucose Negative Patient ABO/Rh Antibody Screen 03/24/23 03/24/23 03/24/23 19:34 19:34 19:34 WBC 13.96 H RBC 4.55 Hgb 16.2 Hct 45.3 MCV 100 H MCH 35.6 H MCHC 35.8 RDW 12.6 Plt Count 253 MPV 9.7 Immature Gran % 0.4 Neutrophils % 64.4 Lymphocytes % 24.3 Monocytes % 9.3 Eosinophils % 1.0 Basophils % 0.6 Nucleated RBC % 0.0 Absolute Neutrophils 8.99 H Absolute Lymphocytes 3.39 Absolute Monocytes 1.30 H Absolute Eosinophils 0.14 Absolute Basophils 0.08 ESR Sodium Potassium Chloride Carbon Dioxide Anion Gap BUN Creatinine Est GFR (CKD-EPI 2020) Glucose Calcium Magnesium Total Bilirubin AST ALT Alkaline Phosphatase C-Reactive Protein 0.06 Total Protein Albumin Urine Color Urine Clarity Urine pH Ur Specific [place] Urine Protein Urine Ketones Urine Blood Urine Nitrite Urine Bilirubin Urine Urobilinogen Ur Leukocyte Esterase Urine RBC Urine WBC Ur Epithelial Cells Urine Crystals Urine Bacteria Urine Casts Urine Mucus Ur Culture Indicated? Urine Glucose Patient ABO/Rh O Positive Antibody Screen NEGATIVE 03/24/23 19:34 WBC RBC Hgb Hct MCV MCH MCHC RDW Plt Count MPV Immature Gran % Neutrophils % Lymphocytes % Monocytes % Eosinophils % Basophils % Nucleated RBC % Absolute Neutrophils Absolute Lymphocytes Absolute Monocytes Absolute Eosinophils Absolute Basophils ESR Sodium 138 Potassium 2.7 L* Chloride 99 Carbon Dioxide 29.7 Anion Gap 9.3 BUN 9 Creatinine 1.0 Est GFR (CKD-EPI 2020) 95.18 Glucose 104 Calcium 9.3 Magnesium 2.0 Total Bilirubin 1.4 H AST 31 ALT 47 Alkaline Phosphatase 90 C-Reactive Protein Total Protein 7.9 Albumin 4.4 Urine Color Urine Clarity Urine pH Ur Specific [place] Urine Protein Urine Ketones Urine Blood Urine Nitrite Urine Bilirubin Urine Urobilinogen Ur Leukocyte Esterase Urine RBC Urine WBC Ur Epithelial Cells Urine Crystals Urine Bacteria Urine Casts Urine Mucus Ur Culture Indicated? Urine Glucose Patient ABO/Rh Antibody Screen PFSH All Active Problems Fatty liver (Acute) Hiatal hernia (Chronic) Rectal bleeding (Acute) Decreased hearing of right ear (Acute) Subjective 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 Mixed hearing loss, bilateral (Acute) Perforation of right tympanic membrane (Acute) Left flank pain (Acute 11/14/13) Renal colic on left side (Acute 11/14/13) Medical History Aortic regurgitation Ascending aortic aneurysm HLD (hyperlipidemia) Hypertension Perforated appendicitis Pericarditis Splenic vein thrombosis Social History Smoking/Tobacco Use Status: Current every day Tobacco Type: cigarettes Smoking risk assessment performed?: Yes Alcohol Intake: former Drug use: Occasionally Substance use type: marijuana Housing: house Do you feel safe at home: Yes Do you feel safe in your relationship?: Yes Time Spent with Patient Time Spent with Patient: <45 minutes Time was spent: preparing to see the patient(eg.review tests), counseling the patient and care coordination
--- NOTE | 2023-03-25 11:40 | CHAPLAIN ---
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 Recently he's dealt with the ending of a relationship and the unexpected of both his parents in the past year or so. 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 He is close with his twin 12 year old sons and enjoy spending time with them.
== END 2023-03-25 11:26 | disposition home or self-care (01) ==
LOC: ER 21:18 → MS 21:38
PROVIDERS: Admitting Provider Surgery; Emergency Provider Nurse Practitioner Acute Care; PCP Family Medicine; Visit Provider Surgery
DX: K62.5 Hemorrhage of anus and rectum (principal); R42 Dizziness and giddiness; H90.6 Mixed conductive and sensorineural hearing loss, bilateral; I35.0 Nonrheumatic aortic (valve) stenosis; E78.5 Hyperlipidemia, unspecified; I10 Essential (primary) hypertension; F17.210 Nicotine dependence, cigarettes, uncomplicated; I71.21 Aneurysm of the ascending aorta, without rupture; K76.0 Fatty (change of) liver, not elsewhere classified; K44.9 Diaphragmatic hernia without obstruction or gangrene
CPT/HCPCS: 36415; 80053; 85652; 86850; 86900; 86901; 93005; 96374; 99285; 74176; 81003; 81015; 83735; 85025; 86140; 93010; G0378; J3480

== ENCOUNTER 2024-02-27 08:23 | Emergency (ER) | payer MEDICAID, SELFPAY ==
[2024-02-27 08:25] VITALS: BP 128/85; PULSE 78; RESP 12; TEMP 37.1; O2SAT 99
[2024-02-27 08:30] VITALS: BP 128/85; PULSE 78; RESP 12; TEMP 37.1; O2SAT 99
--- NOTE | 2024-02-27 08:39 | W.ED.GENAD ---
Discharge Plan Disposition Patient Disposition: Home Condition: Stable Discharge Details Clinical Impression: Acute pain of right ear, Perforation of right tympanic membrane, Decreased hearing of right ear, Otitis media not resolved Primary Care Provider: Marisa Kinney ED Provider: Nasreen Muir Home Meds and New Rx's Prescriptions: New amoxicillin-pot clavulanate 875-125 mg tablet 1 tab PO BID 10 Days Qty: 20 0RF No Action atorvastatin 10 mg tablet 10 mg PO DAILY Patient Comments: TAKE ONE TABLET BY MOUTH EVERY DAY lisinopril 20 mg tablet 20 mg PO DAILY Patient Comments: TAKE ONE TABLET BY MOUTH EVERY DAY chlorthalidone 25 mg tablet 25 mg PO DAILY Patient Comments: TAKE ONE TABLET BY MOUTH EVERY DAY Discharge Instructions Additional Instructions: please start augmetin for 10 days follow up with ENT EMILY Referrals: Bobby Carroll MD [ [facility] STAFF PHYSICIAN] - [facility] General Date/Time Provider Initiated Documentation: 02/27/24 08:24. Limitations to Documentation: no limitations. Information obtained by: patient. HPI Narrative: 43-year-old gentleman with past medical history of ruptured right TM status post surgery presents for evaluation of 1 month of right ear pain, fullness, decreased hearing and drainage. He reports that he has been having yellowish drainage from his ear. About 2 weeks ago he saw his PCP and did start a course of Augmentin. He reports that usually this improves his symptoms, but the Augmentin did not seem to improve this. Related Data Home Medications Medication Instructions Recorded Confirmed amoxicillin 875 mg-potassium 1 tab PO BID 10 days #20 tabs 02/27/24 clavulanate 125 mg tablet atorvastatin 10 mg tablet 10 mg PO DAILY 02/27/24 02/27/24 chlorthalidone 25 mg tablet 25 mg PO DAILY 02/27/24 02/27/24 lisinopril 20 mg tablet 20 mg PO DAILY 02/27/24 02/27/24 Previous Rx's Medication Instructions Recorded amoxicillin 875 mg-potassium 1 tab PO BID 10 days #20 tabs 02/27/24 clavulanate 125 mg tablet Allergies Allergy/AdvReac Type Severity Reaction Status Date / Time No Known Allergies Allergy Verified 02/27/24 08:33 General Stated Complaint: EarProblem JOSSELINE: 4 Exam Narrative Exam Narrative: Review of Systems: All systems reviewed & are unremarkable except as noted in HPI and below Well-developed, no acute distress NCAT PERRL, normal conjunctiva RRR Left TM intact, no bulging erythema or fluid collection, canal normal Right TM with erythema, purulent effusion, TM does appear to be perforated, no mastoid tenderness Unlabored respiratory effort Nondistended abdomen Extremities w/o deformity, no cyanosis, no edema No rashes or lesions. no focal neurologic deficits Appropriate mood and affect Course Vital Signs Vital signs: Vital Signs Temperature 37.1 C 02/27/24 08:25 Pulse 78 02/27/24 08:25 Respiratory Rate 12 02/27/24 08:25 Blood Pressure 128/85 02/27/24 08:25 Pulse Oximetry 99 02/27/24 08:25 Temperature 37.1 C 02/27/24 08:30 Temperature Source Skin 02/27/24 08:30 Pulse 78 02/27/24 08:30 Respiratory Rate 12 02/27/24 08:30 Respiratory Effort Normal, Non-Labored 02/27/24 08:29 Blood Pressure 128/85 02/27/24 08:30 Blood Pressure Position Sitting 02/27/24 08:30 Pulse Oximetry 99 02/27/24 08:30 Oxygen Delivery Method Room Air 02/27/24 08:30 Oxygen Flow Rate 0 02/27/24 08:30 Pain Level 7 02/27/24 08:30 Medical Decision Making Emergent evaluation of right ear pain. The patient does have a history of perforated otitis media. The patient has had surgery of his right eardrum. Symptoms have been ongoing for the last month. Initial differential includes resistant otitis media, otitis externa, mastoiditis. His examination is most consistent with ruptured otitis media. Given the significant amount of drainage and decreased hearing of the right ear. The patient has completed a course of Augmentin. Will prescribe a more prolonged course of Augmentin and have advised that the patient should follow-up with ENT as soon as possible. He has politely been placed on the ER follow-up was for ENT here though he does see an ENT outside the system. Medical Records Medical records reviewed: Yes I reviewed the patient's medical records. Quality:SDOH Health Related Social Needs: No Data to Display PFSH All Active Problems Otitis media not resolved (Acute) Acute pain of right ear (Acute) Fatty liver (Acute) Hiatal hernia (Chronic) Rectal bleeding (Acute) Decreased hearing of right ear (Acute) Subjective 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 Mixed hearing loss, bilateral (Acute) Perforation of right tympanic membrane (Acute) Left flank pain (Acute 11/14/13) Renal colic on left side (Acute 11/14/13) Medical History Perforated appendicitis Splenic vein thrombosis Aortic regurgitation Ascending aortic aneurysm HLD (hyperlipidemia) Hypertension Pericarditis Social History Smoking/Tobacco Use Status: Current every day Tobacco Type: cigarettes Smoking risk assessment performed?: Yes Alcohol Intake: former Drug use: Occasionally Substance use type: marijuana Housing: house Do you feel safe at home: Yes Do you feel safe in your relationship?: Yes
== END 2024-02-27 08:47 | disposition home or self-care (01) ==
PROVIDERS: Emergency Provider Emergency Medicine; PCP Family Medicine
DX: H66.91 Otitis media, unspecified, right ear (principal); H72.91 Unspecified perforation of tympanic membrane, right ear; H92.01 Otalgia, right ear
CPT/HCPCS: 99283

== ENCOUNTER 2024-03-09 10:41 | Emergency (ER) | payer MEDICAID, SELFPAY ==
[2024-03-09] VITALS (11 sets, daily range): BP systolic 132–144; BP diastolic 70–83; PULSE 55–70; RESP 10–17; TEMP 37.2; O2SAT 94–99
--- NOTE | 2024-03-09 10:30 | RT.EKG_ITS ---
APPROVED REPORT Exam: Resting ECG Reason for Exam: Chest pain Patient Location: E HR:59 bpm ECG Measurements Heart Rate 59 AXIS MA 127 P 63 QRSd 108 QRS 56 QT 394 T 257 QTc 392 Conclusion Sinus bradycardia...rate< 60 Probable LVH with secondary repol abnrm...multiple LVH criteria Physician: no stemi, lateral t wave inversions present but this appears unchanged from prior ekg on
--- NOTE | 2024-03-09 10:45 | DI.CT_ITS ---
Exam(s) CT THORAX ABD/PEL CTA EXAM: CT THORAX ABD/PEL CTA CLINICAL HISTORY: Hx of anuerysm, left sided chest pain, dizziness. TECHNIQUE: Imaging Protocol: Axial computed tomography images with coronal and sagittal reformatted images were created and reviewed CONTRAST MATERIAL: Intravenous: Omnipaque 350 Contrast volume:100 ml Oral: None COMPARISON: CT CT ABDOMEN PELVIS WO from 03/24/[address] HEAD WO from 03/09/2024 FINDINGS: CHEST: AORTA: The diameter of the ascending thoracic aorta is prominent measuring 4 cm. There is no evidenc e of dissection. The diameter of the aortic arch and descending thoracic aorta are upper normal. Th ere is no evidence of significant stenosis at the origin of the great vessels off the aortic arch.. There is no evidence of abdominal aortic aneurysm. Common and external iliac arteries are patent and nonaneurysmal as are the common femoral arteries. Internal iliac arteries are patent and nonaneurys mal. No evidence of significant atherosclerotic narrowing. No intraluminal dissection flaps evident . The celiac, superior mesenteric, and inferior mesenteric arteries are patent. No significant stenosi s. No intraluminal emboli. LUNGS: No infiltrates nor pleural effusions. No ominous pulmonary nodules. No pneumothorax.. MEDIASTINUM: There is no hilar nor mediastinal adenopathy. Visualized thyroid unremarkable. CARDIAC: Heart size is normal. There is no pericardial effusion. ABDOMEN: There is no evidence of abdominal aortic aneurysm nor dissection.There is no aneurysmal dilatation of the common iliac arteries.The celiac and superior mesenteric arteries are patent. There is no ascites. LIVER: Livers mildly hypodense implying steatosis. There are no obvious discrete focal hepatic lesio ns on this arterial phase only study. GALLBLADDER/BILIARY: Gallbladder is either contracted or surgically absent. CBD is not dilated. PANCREAS: No evidence of pancreatic mass nor dilatation of the pancreatic duct. SPLEEN: Spleen is not seen. Surgical absence versus not developed. ADRENALS: There are no significant adrenal masses. KIDNEYS: No cysts evident. No calculi nor hydronephrosis. No solid renal masses. ABDOMINAL AORTA: The abdominal aorta is not enlarged. LYMPH NODES: There is no retroperitoneal nor para-aortic adenopathy. No obvious mesenteric masses. ABDOMINAL WALL: No evidence of significant anterior abdominal wall hernia. GI: There is no evidence of bowel obstruction, free air, nor abscess. PELVIS: LYMPH NODES: There is no intrapelvic nor inguinal adenopathy. GI: The appendix appears to be surgically absent.No evidence of sigmoid diverticulitis. URINARY BLADDER: No calculi nor masses evident REPRODUCTIVE: Prostate size normal. Seminal vesicles unremarkable. OSSEOUS: No significant osseous lesions. IMPRESSION: 1. Diameter of the ascending thoracic aorta is enlarged, measuring 4 cm. There is no evidence of dis section. No pericardial effusion. 2. No evidence of abdominal aortic aneurysm, aortic dissection, nor significant dilatation of the aor toiliac segments. 3. Spleen is again not seen and this would imply surgical absence (there are no clips evident) versus never developed. 4. Appendix is surgically absent. Gallbladder not seen and may be surgically absent. Other findings as above. RADIATION DOSE DELIVERED: 1,101.78mGy.cm Total DLP DATA REPOSITORY: All CT scans at this facility are submitted to the National Radiology Data Registry (NRDR) Dose Index Registry (DIR) with the [employer] ([employer]). RADIATION OPTIMIZATION: All CT scans at this facility use at least one of these dose optimization te chniques: automated exposure control; mA and/or kV adjustment per patient size (includes targeted exa ms where dose is matched to clinical indication); or iterative reconstruction.
--- NOTE | 2024-03-09 11:00 | DI.CT_ITS ---
Exam(s) CT HEAD WO EXAM: CT HEAD WO CLINICAL HISTORY: Dizziness, recent perforated Right TM. TECHNIQUE: Imaging Protocol: Axial computed tomography images with coronal and sagittal reformatted images were created and reviewed COMPARISON: CT CT BRAIN NECK CTA from 09/29/2021 FINDINGS: There are no skull fractures. There is no fluid in the visualized paranasal sinuses. However, there is unilateral opacification of right-sided mastoid air cells. There is no evidence of intracranial hemorrhage, mass effect, or shift of midline structures. There are no extra-axial fluid collections. The ventricles are not enlarged or shifted and there is no blo od within the ventricular system nor within the basal cisterns. IMPRESSION: No acute intracranial findings on this noninfused CT scan of the brain. The lateral right side mastoid effusion noted. RADIATION DOSE DELIVERED: 817.02mGy.cm Total DLP DATA REPOSITORY: All CT scans at this facility are submitted to the National Radiology Data Registry (NRDR) Dose Index Registry (DIR) with the [employer] (ACR). RADIATION OPTIMIZATION: All CT scans at this facility use at least one of these dose optimization te chniques: automated exposure control; mA and/or kV adjustment per patient size (includes targeted exa ms where dose is matched to clinical indication); or iterative reconstruction.
--- NOTE | 2024-03-09 11:00 | W.ED.GENAD ---
Discharge Plan Disposition Patient Disposition: Home Condition: Stable Discharge Details Clinical Impression: Perforation of right tympanic membrane, Sinusitis, acute, maxillary, Dizziness, Chest pain Primary Care Provider: Marisa Kinney ED Provider: Mireya Shaw Home Meds and New Rx's Prescriptions: New meclizine 25 mg tablet 25 mg PO BID PRN (Reason: dizziness) Qty: 20 0RF Rx Instructions: Please take Seroquel 1/2 to 1 tablet twice daily as needed for dizziness. No Action atorvastatin 10 mg tablet 10 mg PO DAILY Patient Comments: TAKE ONE TABLET BY MOUTH EVERY DAY lisinopril 20 mg tablet 20 mg PO DAILY Patient Comments: TAKE ONE TABLET BY MOUTH EVERY DAY chlorthalidone 25 mg tablet 25 mg PO DAILY Patient Comments: TAKE ONE TABLET BY MOUTH EVERY DAY Discharge Instructions Instructions: Chest Pain, Adult ED, Ruptured Eardrum ED, Vertigo ED Additional Instructions: At this time your cardiac workup is within normal limits. No evidence of heart attack, aortic aneurysm looks similar. If continued or recurrent chest pain please follow-up with your primary care provider to discuss outpatient stress testing. You do have some fluid in your right maxillary sinus which could be related to the perforated eardrum. Please keep your appointment with Dr. Carroll on . Please take the meclizine for dizziness as prescribed. No swimming try not to get water into your ear. Your magnesium and potassium were slightly low which were supplemented today. Please increase potassium content in your foods for the next few days. Consider taking a multivitamin. You may call Dr. Carroll's office on Tuesday morning and let them know that you were seen here. Follow up with primary care provider in 3-5 days. Return to ED sooner if any worsening or concerns. Please take Tylenol or Ibuprofen with food every 4-6 hours as needed for pain and swelling. Stand Alone Forms: Work Release Referrals: Marisa Kinney MD [Primary Care Provider] - Bobby Carroll MD [ [facility] STAFF PHYSICIAN] - 3 days HPI General Mode of arrival: ambulatory. Date/Time Provider Initiated Documentation: 03/09/24 10:42. Limitations to Documentation: no limitations. Information obtained by: patient, RN notes reviewed and old records reviewed. Related Data Home Medications Medication Instructions Recorded Confirmed atorvastatin 10 mg tablet 10 mg PO DAILY 02/27/24 03/09/24 chlorthalidone 25 mg tablet 25 mg PO DAILY 02/27/24 03/09/24 lisinopril 20 mg tablet 20 mg PO DAILY 02/27/24 03/09/24 meclizine 25 mg tablet 25 mg PO BID PRN dizziness #20 tabs 03/09/24 Previous Rx's Medication Instructions Recorded meclizine 25 mg tablet 25 mg PO BID PRN dizziness #20 tabs 03/09/24 Allergies Allergy/AdvReac Type Severity Reaction Status Date / Time No Known Allergies Allergy Verified 03/09/24 10:53 General Stated Complaint: Chest Pain JOSSELINE: 2 Review of Systems All systems reviewed & are unremarkable except as noted in HPI and below Constitutional Constitutional: Reports as per HPI and Denies fever(s) ENT Ears, Nose, Mouth, and Throat: Reports vertigo and Reports dizziness Cardiovascular Cardiovascular: Reports chest pain, Denies leg edema, Denies lightheadedness, Reports radiating jaw, neck or arm pain (Left shoulder) and Denies dyspnea Respiratory Respiratory: Denies dyspnea Musculoskeletal Musculoskeletal: Denies abnormal gait Neurologic Neurologic: Denies abnormal gait, Denies confusion, Reports vertigo, Reports dizziness, Denies lack of coordination and Denies localized weakness Psychiatric Psychiatric: Denies confusion Exam Narrative Exam Narrative: Constitutional: Alert and oriented x3. Appears stated age. Normal body habitus. Head: Normocephalic, no trauma. Eyes: Pupils PERRL, Red reflex noted, EOM's intact. Eyelids symmetrical without lesions, discharge, or swelling. ENT: Normal TM on the left, right TM is obscured by white thick discharge, unable to fully visualize TM no surrounding erythema or active drainage at this time. Chest: RRR, Normal S1, S2, distal pulses intact. Resp: Lungs clear to auscultation bilaterally, no wheezes, rales, or rhonchi. Abdomen: Soft, non-distended, Normoactive bowel sounds all 4 quads. Musculoskeletal: Normal gait, Moves all 4 extremities without difficulty. Skin: No suspicious rashes or lesions. Capillary refill less than 2 sec. Neurologic: Cranial nerves II-XII intact. Alert and oriented x 3. Motor: No deficits noted. Sensory: Intact bilaterally all 4 extremities. Hematologic/Lymphatic: No ecchymosis, no lymphadenopathy. Course Vital Signs Vital signs: Vital Signs Temperature 37.2 C 03/09/24 10:46 Pulse 70 03/09/24 10:46 Respiratory Rate 11 L 03/09/24 10:46 Blood Pressure 137/83 03/09/24 10:46 Pulse Oximetry 94 03/09/24 10:46 Temperature 37.2 C 03/09/24 10:46 Temperature Source Temporal Artery Scan 03/09/24 10:46 Pulse 70 03/09/24 10:46 Respiratory Rate 12 03/09/24 10:54 Respiratory Effort Normal, Non-Labored 03/09/24 10:54 Respiratory Depth Normal 03/09/24 10:54 Respiratory Pattern Normal 03/09/24 10:54 Blood Pressure 137/83 03/09/24 10:46 Blood Pressure Position Sitting 03/09/24 10:46 Pulse Oximetry 94 03/09/24 10:46 Oxygen Delivery Method Room Air 03/09/24 10:46 Oxygen Flow Rate 0 03/09/24 10:46 Pain Level 5 03/09/24 10:46 Medical Decision Making 43-year-old male presents to the ER with a chief complaint of left-sided chest pain that began at 7:00 this morning radiates into his left shoulder. He also reports dizziness after a perforated eardrum on his right which he was treated for here approximately a week ago. He did finish his antibiotics yesterday. He denies any nausea vomiting he does report diarrhea which is chronic for him. Transition to reports with any movement he does get dizzy. Does have a past medical history of ascending aortic aneurysm which on the last CT was 4 cm. Other past medical history includes pericarditis, hypertension, hyperlipidemia, aortic regurgitation, splenic vein thrombosis, perforated appendicitis, resolved carcinoid tumor of the appendix. EKG was reviewed by Dr. Thompson and myself ER attending, old EKG available for review. No STEMI or significant changes noted. Cardiac workup ordered including serial troponins, PT INR, CTA chest and abdomen to evaluate the aneurysm and CT head without contrast due to the dizziness. He does have some White thick substance noted to his right tympanic membrane, it is obscured and hard to visualize. I do suspect that the dizziness may be caused by this. He does have an upcoming appointment with ENT on . White blood cell count 10.87, no left shift, potassium slightly low at 3.1 chloride 96, magnesium also slightly low at 1.7 AST slightly elevated at 59 ALT 64 troponin initially less than 50 which is within normal limits. Will give a liter normal saline, p.o. magnesium and potassium. Will consider meclizine. Patient reevaluation he denies any further chest pain, dizziness has improved after the meclizine. Discussed results with him and follow-up care he verbalized understanding. I do suspect the dizziness is due to the fluid in the maxillary sinus. He does endorse alcohol use over the last couple of days which could be explained for his AST and ALT being slightly elevated. Patient was ambulatory upon discharge alert and oriented and feeling better. This text was generated using [employer] dictation system, please disregard any oddities of phrase or misspellings. Lab Data Lab results reviewed: Yes I reviewed the patient's lab results. Labs: Laboratory Tests Range/Units 03/09/24 03/09/24 11:00 13:40 WBC (4.4-10.8) 10^3/uL 10.87 H RBC (4.36-5.78) 10^6/uL 4.75 Hgb (13.5-17.5) g/dL 16.8 Hct (40.0-50.0) % 45.5 MCV (80-95) fL 96 H MCH (27.0-33.0) pg 35.4 H MCHC (32.0-36.0) % 36.9 H RDW (11.8-14.1) % 10.7 L Plt Count (130-400) 10^3/uL 350 MPV (8.0-11.0) fL 9.8 Immature Gran % % 0.6 Neutrophils % % 60.7 Lymphocytes % % 28.2 Monocytes % % 8.8 Eosinophils % % 0.5 Basophils % % 1.2 Nucleated RBC % (0.0-0.3) % 0.0 Absolute Neutrophils (1.2-6.7) 10^3/uL 6.60 Absolute Lymphocytes (1.2-3.4) 10^3/uL 3.07 Absolute Monocytes (0.1-0.8) 10^3/uL 0.96 H Absolute Eosinophils (0.0-0.7) 10^3/uL 0.05 Absolute Basophils (0.0-0.2) 10^3/uL 0.13 PT (9.1-11.1) sec 11.2 H INR (0.9-1.1) 1.1 Sodium (136-145) mmol/L 136 Potassium (3.5-5.1) mmol/L 3.1 L Chloride (98-107) mmol/L 96 L Carbon Dioxide (21.0-32.0) mmol/L 30.5 Anion Gap (3-11) mmol/L 9.5 BUN (7-18) mg/dL 19 H Creatinine (0.70-1.30) mg/dL 1.1 Est GFR (CKD-EPI 2020) (mL/min/1.73m2) 84.37 Glucose (74-106) mg/dL 99 Calcium (8.5-10.1) mg/dL 9.0 Magnesium (1.8-2.4) mg/dL 1.7 L Total Bilirubin (0.2-1.0) mg/dL 1.09 H AST (15-37) U/L 59 H ALT (16-63) U/L 64 H Alkaline Phosphatase (46-116) U/L 86 Troponin I (< or =60) ng/L < 50 < 50 Total Protein (6.4-8.2) g/dL 8.2 Albumin (3.4-5.0) g/dL 4.2 Quality:SDOH Health Related Social Needs: No Data to Display PFSH All Active Problems (Updated 03/09/24 @ 14:47 by Mireya Shaw NP) Chest pain (Acute) Dizziness (Acute) Sinusitis, acute, maxillary (Acute) Otitis media not resolved (Acute) Acute pain of right ear (Acute) Fatty liver (Acute) Hiatal hernia (Chronic) Rectal bleeding (Acute) Decreased hearing of right ear (Acute) Subjective 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 Mixed hearing loss, bilateral (Acute) Perforation of right tympanic membrane (Acute) Left flank pain (Acute 11/14/13) Renal colic on left side (Acute 11/14/13) Medical History Perforated appendicitis Splenic vein thrombosis Aortic regurgitation Ascending aortic aneurysm HLD (hyperlipidemia) Hypertension Pericarditis Social History Smoking/Tobacco Use Status: Former Tobacco Use Quit Date: 01/04/24 Smoking risk assessment performed?: Yes Alcohol Intake: current Alcohol type: beer Drug use: Occasionally Substance use type: marijuana Housing: house Do you feel safe at home: Yes Do you feel safe in your relationship?: Yes PAWSS Have you Been Recently Intoxicated or Drunk Within the Last 30 days?: No Have you Ever Experienced Previous Episodes of Alcohol Withdrawal?: No Have you ever Experienced Withdrawal Seizures?: No Have you ever Experienced Delirium Tremens(DT)s?: No Have you ever undergone Alcohol Rehabilitation Treatment (i.e, inpt ot outpatient treatment programs)?: No Have you ever Experienced Blackouts?: No Have you ever Combined Alcohol with other Downers within the last 90 days?: No Have you ever Combined Alcohol with any other Substance of Abuse during the last 90 days?: No Positive Blood Alcohol level on Presentation? [PCS.BAL]: No Evidence of Increased Autonomic Activity (i.e. HR>120, tremor, sweating, agitation, nausea)?: No Result: 0
[2024-03-09 11:04] LABS: Abs Immature Grans 0.07 10^3/uL (0.0-0.06); Absolute Basophil Count 0.13 10^3/uL (0.0-0.2); Absolute Eosinophil Count 0.05 10^3/uL (0.0-0.7); Absolute Monocyte Count 0.96 10^3/uL (0.1-0.8); Basophils % 1.2 %; Eosinophils % 0.5 %; HCT 45.5 % (40.0-50.0); HGB 16.8 g/dL (13.5-17.5); Immature Grans % 0.6 %; Lymphocytes % 28.2 %; MCH 35.4 pg (27.0-33.0); MCHC 36.9 % (32.0-36.0); MCV 96 fL (80-95); MPV 9.8 fL (8.0-11.0); Monocytes % 8.8 %; Neutrophils % 60.7 %; Platelet Count 350 10^3/uL (130-400); RBC 4.75 10^6/uL (4.36-5.78); RDW 10.7 % (11.8-14.1); RDW-SD 38.6 fL; WBC 10.87 10^3/uL (4.4-10.8)
[2024-03-09 11:07] LABS: Absolute Lymphocyte Count 3.07 10^3/uL (1.2-3.4)
[2024-03-09 11:21] LABS: INR 1.1 (0.9-1.1); Prothrombin Time 11.2 sec (9.1-11.1)
[2024-03-09 11:27] LABS: ALT 64 U/L (16-63); AST 59 U/L (15-37); Albumin 4.2 g/dL (3.4-5.0); Alkaline Phosphatase 86 U/L (46-116); Anion Gap 9.5 mmol/L (3-11); BUN 19 mg/dL (7-18); Bilirubin, Total 1.09 mg/dL (0.2-1.0); CO2 30.5 mmol/L (21.0-32.0); CREATININE 1.1 mg/dL (0.70-1.30); Chloride 96 mmol/L (98-107); Estimated GFR 84.37 (mL/min/1.73m2); Glucose 99 mg/dL (74-106); Magnesium 1.7 mg/dL (1.8-2.4); Potassium 3.1 mmol/L (3.5-5.1); Sodium 136 mmol/L (136-145); Total Protein 8.2 g/dL (6.4-8.2); Troponin I < 50 ng/L (< or =60)
[2024-03-09] MEDS: Normal Saline - Diluent 50 ML VIAL IJ (11:31)
[2024-03-09] MEDS: Omnipaque 350 MG/ML 100 ML BTL IJ (11:31)
[2024-03-09] MEDS: Ondansetron 4 MG/2 ML VIAL IVP (11:49)
[2024-03-09] MEDS: Normal Saline 1,000 ML 1000 ML IV (11:49)
[2024-03-09] MEDS: Potassium Chloride 20 MEQ TABCR 40 MEQ PO (11:49)
[2024-03-09] MEDS: Magnesium Oxide 400 MG TAB PO (11:49)
[2024-03-09] MEDS: Meclizine 12.5 MG TAB PO (14:10)
[2024-03-09 14:13] LABS: Troponin I < 50 ng/L (< or =60)
== END 2024-03-09 14:55 | disposition home or self-care (01) ==
PROVIDERS: Emergency Provider Registered Nurse Emergency; PCP Family Medicine
DX: H72.91 Unspecified perforation of tympanic membrane, right ear (principal); J01.00 Acute maxillary sinusitis, unspecified; R42 Dizziness and giddiness; R07.9 Chest pain, unspecified; R00.1 Bradycardia, unspecified
CPT/HCPCS: 36415; 71275; 80053; 93005; 96361; 96374; 99285; 70450; 74174; 83735; 84484; 85025; 85610; 93010; 99284; J2405; J3490

== ENCOUNTER 2025-02-04 06:12 | Day surgery (SDC) | payer MEDICAID, SELFPAY ==
--- NOTE | 2025-02-03 22:10 | W.SURGCON ---
Date of service: 02/04/25 Time of Service: 07:30 Assessment and Plan Assessment and plan (1) Lipoma: Status: Acute Assessment and plan: 44-year-old man needs a lipoma excised. Overall plan: Lipoma excision History of Present Illness Narrative: Patient has a symptomatic lipoma on his left shoulder. PFSH All Active Problems Lipoma (Acute) Otitis externa, fungal, right ear (Acute) Fatty liver (Acute) Hiatal hernia (Chronic) Rectal bleeding (Acute) Decreased hearing of right ear (Acute) Subjective 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 Mixed hearing loss, bilateral (Acute) Perforation of right tympanic membrane (Acute) Renal colic on left side (Acute 11/14/13) Left flank pain (Acute 11/14/13) Medical History Congenital insufficiency of aortic valve Aortic stenosis Nicotine dependence Anxiety Genital herpes simplex Pt. denies, states he has never had this and doesn't not know why it is in his chart. Perforated appendicitis Splenic vein thrombosis Aortic regurgitation Ascending aortic aneurysm HLD (hyperlipidemia) Hypertension Pericarditis Surgical History S/P laparotomy (~2008) laparotomy w/ major resection: splenectomy, gallbladder and omentum removal Hx of tonsillectomy S/P right knee arthroscopy (~1994) History of laparoscopic appendectomy History of colonoscopy (~2011) Social History (Updated 12/25/24 @ 08:26 by KAREN Blanco) Smoking/Tobacco Use Status: Former Tobacco Use Quit Date: 01/04/24 Smoking risk assessment performed?: Yes Alcohol Intake: current Alcohol Intake frequency: 0-2 drinks per day Alcohol type: beer Drug use: Occasionally Substance use type: marijuana Details: Use in the last 24hrs Housing: house Do you feel safe at home: Yes Do you feel safe in your relationship?: Yes Exam Narrative Exam Narrative: Gen: Non-toxic, comfortable and interactive Neuro: Alert and oriented x3 Psych: Good mood and affect. Good insight and understanding into condition. Chest: Non-labored breathing, no wheezing, no visible shortness of breath. Heart: Regular Back: Lipoma is on the left shoulder overlying the scapula.
--- NOTE | 2025-02-03 22:12 | W.PM.DSUDISC ---
Date of service: 02/04/25 Discharge Plan Disposition Patient Disposition: Home Condition: Good Discharge Details Attending Provider: Daniel Park Primary Care Provider: Marisa Kinney Home Meds and New Rx's Prescriptions: No Action All Day Allergy (cetirizine) 10 mg capsule 10 mg PO DAILY PRN bisacodyl [Dulcolax (bisacodyl)] 5 mg tablet,delayed release (DR/EC) 5 mg PO ONCE Qty: 4 0RF Rx Instructions: Take per colonoscopy instructions provided by ordering providers office polyethylene glycol 3350 17 gram/dose powder 17 g PO ONCE Qty: 238 0RF Rx Instructions: Take per colonoscopy instructions provided by ordering providers office atorvastatin 10 mg tablet 10 mg PO DAILY Patient Comments: TAKE ONE TABLET BY MOUTH EVERY DAY lisinopril 20 mg tablet 20 mg PO DAILY Patient Comments: TAKE ONE TABLET BY MOUTH EVERY DAY chlorthalidone 25 mg tablet 25 mg PO DAILY Patient Comments: TAKE ONE TABLET BY MOUTH EVERY DAY Discharge Instructions Additional Instructions: FINDINGS: The lipoma was excised easily and without any difficulty. It has a completely benign appearance but as we discussed, we did send it to pathology to get reviewed under microscope. INSTRUCTIONS: Incision: Leave the dressing in place for today, tomorrow and remove it the next day. When you take it off, leave it off. The wound does not need to be covered. However you should keep it clean. It can get wet in a shower but no swimming for 1 week. Activity: As tolerated. You should stretch and ensure full mobility of your left shoulder and arm however the strenuous level of activity that you do should be kept relatively minimal so that you do not pull apart the incision. Listen to your body. Diet: Regular diet as tolerated. Medications: Resume any/all of your usual/regular home medications. Follow-up: If you are having any issues or concerns call the surgery office immediately. Otherwise, call to have your sutures removed in 2-3 weeks Pain control: Take Tylenol, 1000 mg, every 6 hours on a schedule for the next 3 days. You can use ibuprofen in addition to Tylenol if needed. Ice can be used as needed. Activity:: Activity as Tolerated Diet:: As Tolerated Discharge Orders Discharge Orders: Discharge Order (Routine); Ordered 02/03/25 Ordered By: Daniel Park DS: Diagnosis Discharge Diagnosis (1) Lipoma: Status: Acute
[2025-02-04 06:21] VITALS: BP 135/90; PULSE 72; RESP 16; TEMP 36.8; O2SAT 97
[2025-02-04] MEDS: Lactated Ringers 1,000 ML 80 ML IV (06:38)
--- NOTE | 2025-02-04 07:02 | ANES.PREOP_ITS ---
General Info Date of Service Date Performed: 02/04/25 Height: 6 ft 1 in Weight: 89.5 kg Body Mass Index (BMI): 26.0 Surgical Procedure: Operation Date: 02/04/25 07:40 Proposed Procedure Side Surgeon p Excision Lipoma, Midback Left Daniel Park MD Meds Allergies and Home Medications Allergies Allergy/AdvReac Type Severity Reaction Status Date / Time No Known Allergies Allergy Verified 02/04/25 06:29 Home Medication ?Medication ?Instructions ?Recorded atorvastatin 10 mg tablet 10 mg PO DAILY 02/27/24 chlorthalidone 25 mg tablet 25 mg PO DAILY 02/27/24 lisinopril 20 mg tablet 20 mg PO DAILY 02/27/24 cetirizine 10 mg capsule (All Day 10 mg PO DAILY PRN 12/10/24 Allergy (cetirizine)) bisacodyl 5 mg tablet,delayed 5 mg PO ONCE #4 tabs 12/20/24 release (Dulcolax (bisacodyl)) polyethylene glycol 3350 17 17 g PO ONCE #238 grams 12/20/24 gram/dose oral powder Current Visit Medications: Current Medications Generic Name Dose Route Start Last Admin Trade Name Freq PRN Reason Stop Dose Admin Ringer's Solution 1,000 mls @ 80 mls/hr 02/04/25 06:00 02/04/25 06:38 IV 02/04/25 23:59 80 mls/hr INFUSION RAFAEL Administration IV Miscellaneous Supplies 1 each 02/04/25 06:00 Iv Access IV 02/04/25 23:59 DIRECTED RAFAEL Sodium Chloride 0 ml 02/04/25 06:00 Normal Saline Flush 10 Ml Syr IV 02/04/25 23:59 PRN PRN Sodium Chloride 0 ml 02/04/25 06:00 Normal Saline 10 Ml Vial IJ 02/04/25 23:59 DIRECTED PRN Sterile Water 0 ml 02/04/25 06:00 Water,Injection,Sterile 10 Ml Vial IJ 02/04/25 23:59 DIRECTED PRN PFSH Active Problems Active Problems: Problem Status Onset Code Lipoma Acute D17.9 Otitis externa, fungal, right ear Acute B36.9, H62.41 Fatty liver Acute K76.0 Hiatal hernia Chronic K44.9 Rectal bleeding Acute K62.5 Decreased hearing of right ear Acute H91.91 Tympanosclerosis of right ear Acute H74.01 Mixed hearing loss, bilateral Acute H90.6 Perforation of right tympanic membrane Acute H72.91 Renal colic on left side Acute 11/14/13 N23 Left flank pain Acute 11/14/13 R10.9 Medical History Medical History Congenital insufficiency of aortic valve Aortic stenosis Nicotine dependence Anxiety Genital herpes simplex Pt. denies, states he has never had this and doesn't not know why it is in his chart. Perforated appendicitis Splenic vein thrombosis Aortic regurgitation Ascending aortic aneurysm HLD (hyperlipidemia) Hypertension Pericarditis Surgical History Surgical History S/P laparotomy (~2008) laparotomy w/ major resection: splenectomy, gallbladder and omentum removal Hx of tonsillectomy S/P right knee arthroscopy (~1994) History of laparoscopic appendectomy History of colonoscopy (~2011) Tobacco Smoking/Tobacco Use Status: Former Tobacco Use Passive smoking exposure: No Alcohol Alcohol Intake: current Alcohol intake frequency: 0-2 drinks per day Alcohol type: beer Substance Use Substance use: Occasionally Substance use type: marijuana Details: Use in the last 24hrs Vital Signs and Lab Results Vital Signs Most Recent Vital Signs in EMR: Most Recent Vital Signs Temp Pulse Resp BP Pulse Ox 36.8 C 72 16 135/90 97 02/04/25 06:21 02/04/25 06:21 02/04/25 06:21 02/04/25 06:21 02/04/25 06:21 Lab Results Blood Type / Crossmatch: No Data to Display Complete Blood Count: No Data to Display Complete Metabolic Panel: No Data to Display Liver Function Panel: No Data to Display Coagulation Panel: No Data to Display Cardiac Panel: No Data to Display Arterial Blood Gas: No Data to Display Venous Blood Gas: No Data to Display Pancreas Panel: No Data to Display Thyroid Panel: No Data to Display Infectious Disease: 2 No Data to Display Blood Cultures: No Data to Display Toxicology Panel: No Data to Display Anesthesia Assessment and Plan Anesthesia History Personal History: No History of Anesthesia Complications Family History: No Family History of Anesthesia Complications Exercise Tolerance Exercise Tolerance: Metabolic Equivalents>4 Pertinent Negatives Pertinent Negatives: No Symptoms of GERD Cardiac & Pulmonary Exam Cardiac Exam: Normal S1/S2 Heart Sounds Pulmonary Exam: Clear Bilateral Breath Sounds Implantable Cardiac Device Does patient have a Pacemaker or an ICD?: No Airway Exam Known Difficult Airway: No Mallampati Class: 2 Mouth Opening: Normal (> 3cm) Thyromental Distance: Greater than 3 cm Neck Range of Motion: Full ROM Neck Circumference: Normal Teeth Condition: Normal Dentition ASA Classification ASA Score: ASA 2 Emergency Case?: No NPO Status NPO Status: NPO Clears >2 hours, Solids >8 hours Anesthesia Plan Resuscitation Status: Full Code Anesthesia Technique: General Anesthesia Airway Planned: Natural Airway Monitors Used: Standard Monitors
[2025-02-04 07:04] VITALS: BMI 26.0
[2025-02-04] MEDS: Bupivacaine 0.25% Pres-Free 30 ML VIAL (08:10)
[2025-02-04] MEDS: Bupivacaine LIPOSOME/PF 133 MG/10 ML VIAL IJ (08:11)
--- NOTE | 2025-02-04 08:15 | SOFT_PTH ---
PATIENT: Alpesh Gil LOC: [facility] U#:[id number] AGE/SX: 44/M ROOM: RE02/04/[address]: Daniel Park : 1980 BED: DIS: 02/04/2025 SPEC #: [id number] RECD: 02/04/25 12:49 STATUS: TAINA RE #: [id number] RM: 02/04/25 08:[address]: Daniel Park DEPT: Surgical Specimen RECD BY: Smita Bryan ENTERED: 02/04/25 12:51 SP TYPE: SOFT OTHR DR: Marisa Kinney Tissues: 1 - SOFT TISSUE MISC (INC. LIPOMA) Procedures: GROSS AND MICRO LEVEL 3 Comments: [id number]
[2025-02-04 08:24] VITALS: BP 106/71; PULSE 55; RESP 14; TEMP 36.4; O2SAT 97
--- NOTE | 2025-02-04 08:29 | W.PM.OP ---
Operative Note Operative Note Refer to Anesthesia Record Procedure Description: Procedures: 1. Lipoma excision from back (left upper back, deep to fascia, within muscle, 5.5cm in largest diameter) Preoperative diagnosis: Lipoma Postoperative diagnosis: Same Surgeon: Mary Park Assist: None Anesthesia: General Anesthesiologist: Samm Indication: 44 yo man with a symptomatic and growing lipoma of the left upper back Findings: Fatty tumor consistent with lipoma was excised through a curvilinear incision from under the first fascia layer and buried within musculature of the back. Tumor overlying scapula. Complications: None Estimated Blood Loss: Minimal Grafts or implants: No Specimen: left upper back lipoma Procedure in detail: Written consent was obtained from the patient who was in agreement the risks, the benefits and the indications for the procedure. The patient was taken to the operating suite and given anesthesia. A timeout was performed and local anesthetic was injected in sterile fashion. Next we prepped and draped in sterile fashion. A curvilinear incision was made following Arash's lines over top of the palpable, fatty tumor. A combination of sharp dissection and electrocautery dissection was used to gain access into the subcutaneous layers. Superficial musculature and fascia was encountered and the lipoma was still below this layer. A small incision was made through the fascial layer and bulging fat was instantly released consistent with gaining access to the lipoma cavity. Next, blunt, finger dissection was easily performed within this cavity and I was able to deliver the lipoma, intact, with all lobes and in 1 piece out of the cavity. Its attachments were minimal and divided with electrocautery where applicable. I passed the specimen off the back table and it was sent to pathology though it has a completely benign?appearance and there is no suspicion for malignancy. The wound cavity was checked for hemostasis and it was found to be excellent. I reapproximated the skin edges with interrupted, nylon suture in mattress fashion. Bacitracin and a sterile dressing were placed on top. A pressure dressing was applied over top of the sterile dressing. The sponge, instrument and sharps count was correct x3 at the end of the procedure. The patient tolerated the procedure well and was taken to the PACU in hemodynamically stable condition. Date of Procedure: 02/04/25
--- NOTE | 2025-02-04 08:38 | W.ANESPOSTOP ---
Postoperative Evaluation Date, Time and Location Date Performed: 02/04/25 Time Performed: 08:38 Patient Location: Day Surgery Unit Vital Signs Most Recent Imported Vital Signs: Most Recent Vital Signs Temp Pulse Resp BP Pulse Ox 36.4 C L 55 L 14 106/71 97 02/04/25 08:24 02/04/25 08:24 02/04/25 08:24 02/04/25 08:24 02/04/25 08:24 Pain Score Most Recent Pain Score: Most Recent Pain Score Pain Level 2 02/04/25 08:24 Assessment Mental Status: Awake (Alert & Oriented to Patient Baseline) Airway and Respiratory Function: Patent airway with normal (patient baseline) respiratory exam Cardiovascular Function: Hemodynamically Stable Hydration Status: Adequately Hydrated Nausea & Vomiting: No Nausea or Vomiting Pain: Pt. Denies Any Pain Peripheral Nerve Block: Patient did not receive a nerve block
[2025-02-04 08:53] VITALS: BP 110/66; PULSE 51; RESP 16; TEMP 36.4; O2SAT 100
== END 2025-02-04 09:16 | disposition home or self-care (01) ==
LOC: SUR 06:13
PROVIDERS: PCP Family Medicine; Visit Provider Student in an Organized Health Care Education/Training Program
PROC: (CPT 21933; principal; 2025-02-04 07:30)
DX: D17.1 Benign lipomatous neoplasm of skin and subcutaneous tissue of trunk (principal)
CPT/HCPCS: 21933; 88304; J0665; J0666; J2003; J2704; J3010

== ENCOUNTER 2025-06-04 10:33 | Outpatient (CLI) | payer MEDICAID, SELFPAY ==
[2025-06-04 12:55] LABS: ALT 19 U/L (16-63); AST 26 U/L (15-37); Albumin 3.8 g/dL (3.4-5.0); Alkaline Phosphatase 69 U/L (46-116); Bilirubin, Total 0.7 mg/dL (0.2-1.0); Total Protein 7.5 g/dL (6.4-8.2)
[2025-06-04 13:03] LABS: Bilirubin, Direct 0.2 mg/dL (0.0-0.2)
[2025-06-10 19:31] LABS: Testosterone, Free 130.1 pg/mL (35.0-155.0)
== END 2025-06-04 10:34 | disposition home or self-care (01) ==
LOC: LBO 10:34
PROVIDERS: PCP Family Medicine; Visit Provider Student in an Organized Health Care Education/Training Program
DX: N48.39 Other priapism (principal)
CPT/HCPCS: 36415; 80076; 84402; 84403

== ENCOUNTER 2025-06-17 10:26 | Emergency (ER) | payer MEDICAID, SELFPAY ==
[2025-06-17] VITALS (22 sets, daily range): BP systolic 168–183; BP diastolic 92–117; PULSE 55–65; RESP 0–21; TEMP 37.1; O2SAT 98–100
--- NOTE | 2025-06-17 10:49 | W.ED.GENAD ---
Discharge Plan Disposition Patient Disposition: Home Discharge Details Clinical Impression: Acute pain of right shoulder, Perforation of right tympanic membrane, Hypocalcemia, Degenerative disc disease, cervical Primary Care Provider: Marisa Kinney ED Provider: Familia Ruiz Home Meds and New Rx's Prescriptions: New diazepam 5 mg tablet 5 mg PO QHS PRNQty: 5 0RF lidocaine [Lidoderm] 5 % adhesive patch,medicated 1 patch topical DAILY Qty: 15 0RF Rx Instructions: leave on most painful area for up to 12 hrs Continued All Day Allergy (cetirizine) 10 mg capsule 10 mg PO DAILY PRN bisacodyl [Dulcolax (bisacodyl)] 5 mg tablet,delayed release (DR/EC) 5 mg PO ONCE Qty: 4 0RF Rx Instructions: Take per colonoscopy instructions provided by ordering providers office polyethylene glycol 3350 17 gram/dose powder 17 g PO ONCE Qty: 238 0RF Rx Instructions: Take per colonoscopy instructions provided by ordering providers office ofloxacin 0.3 % drops 10 drp otic (ear) DAILY atorvastatin 10 mg tablet 10 mg PO DAILY Patient Comments: TAKE ONE TABLET BY MOUTH EVERY DAY lisinopril 20 mg tablet 20 mg PO DAILY Patient Comments: TAKE ONE TABLET BY MOUTH EVERY DAY chlorthalidone 25 mg tablet 25 mg PO DAILY Patient Comments: TAKE ONE TABLET BY MOUTH EVERY DAY Discharge Instructions Additional Instructions: You were seen in the emergency department for your shoulder pain. Your CAT scan showed no sign of any dangerous processes in your head or neck. Your CAT scan did show signs of degenerative disc disease in your cervical spine. As we discussed if develop weakness in the hand or if you have any other symptoms of the right upper extremity please return to the emergency department. Please touch base with your primary care provider concerning your CAT scan results. Your blood work showed no sign of any damage to your heart. Your calcium was mildly low as was your potassium. Please continue eating and drinking normally at this should improve. As we discussed please try taking this muscle relaxer. Please not drive or drink alcohol if you take this muscle relaxer. For your pain please take medications as follows: 1. Take acetaminophen (Tylenol), 1,000 mg (two 500 mg tabs) every 6 hours [2. Take ibuprofen (Advil), 400 mg every 6 hours.] Discharge Data Discharge Date/Time-TO BE ENTERED AT DEPARTURE: 06/17/25 14:57 HPI General Date/Time Provider Initiated Documentation: 06/17/25 10:49. HPI Narrative: MDM This is an overall quite well-appearing normothermic and not tachycardic 44-year-old male with right shoulder pain family history of cervical thrombus for which patient will undergo CT angiogram of his head and neck. No rash to suggest zoster. No pain out of proportion to suggest necrotizing soft tissue infection. Right hand warm and well-perfused so no concern for critical limb ischemia so do not feel patient requires an angiogram of his chest. No recent PICC lines nor history of IV drug use to suggest increased risk for upper extremity DVT so no indication for duplex study. Very minor erythema to right shoulder may be secondary from rubbing. No significant erythema nor warmth to suggest cellulitis. No fluctuance to suggest abscess. No significant shoulder swelling nor limitations in range of motion to suggest increased risk for septic arthritis so I did not feel patient would require an arthrocentesis. No history of thoracic rib to suggest thoracic outlet syndrome however will obtain chest x-ray. Given tenderness to palpation on the right shoulder I am not suspicious for referred pain from intra-abdominal source. Specifically no right upper quadrant tenderness to suggest acute cholecystitis and no indication for right upper quadrant ultrasound. No right lower quadrant tenderness to suggest pancreatitis. Patient has intact sensation and motor function in his right hand and does not have a history of MS. As result my suspicion for multiple sclerosis is low so I do not feel the patient requires an MRI of the cervical spine. Patient does have perforated right TM but is not having significant ear pain nor erythema so we will defer additional treatment at this point in time. He has no mastoid tenderness to suggest mastoiditis. He is not been vomiting to suggest increased risk for subdural empyema. He is neurologically intact so I am not suspicious for CVA so I do not feel that he would be a TNK candidate. He has no bulbar symptoms to suggest ALS. No tonic-clonic activity to suggest seizures no indication for EEG. No nuchal rigidity to suggest meningitis. Not altered to suggest encephalitis. No signs of shoulder dislocation. No trauma to suggest increased risk for fracture. Will assess basic labs continue to monitor. 1:45 PM Reassuring initial troponin. CT angiogram reassuring. Radiology does note that patient has some mild degenerative changes at C5-C6. Patient has very mild hypocalcemia for which he will receive oral repletion. Also found to have mild hypokalemia. Given potassium greater than 3 will defer repletion as pt is tolerating PO. Lipase reassuring. CBC lacks anemia thrombocytopenia and leukocytosis. ECG showing sinus bradycardia rate of 57. Normal axis. CO and QTc within normal limits. Interventricular conduction delay. Left lateral T wave inversions V4 V5. Poor R wave progression. Compared to prior dated earlier this year T wave versions are persistent. No acute injury pattern. 4:50 PM Late charting due to patient care. At the end of our encounter patient reported that he had a history of an aortic aneurysm. He was having no chest pain to suggest aortic dissection. He had had an angiogram of his chest abdomen pelvis performed during summer 2023. He had an ascending thoracic aorta enlarged at 4 cm. He is undergoing surveillance he [place] [facility] [place]PI This is a patient with a history of chronic ear infections presenting with right neck and shoulder pain. The patient reports experiencing pain in the right neck and shoulder, which began upon waking up on 06/06/2025. He initially thought the pain was due to an uncomfortable sleeping position. The pain has been constant and excruciating since then, with the worst pain in the shoulder radiating down the arm. He describes the pain as a burning sensation, particularly aggravated by sitting or driving. Despite receiving a 45-minute massage from his girlfriend on 06/14/2025, the pain worsened the following day. His girlfriend noted a palpable knot in the affected area. He has not sought chiropractic treatment for his neck. He reports no headaches, rashes, or unusual activities prior to the onset of the pain. He does experience some tingling in his hand and tightness in his calves, which he attributes to dehydration. He reports no history of extra ribs. He is left-handed but considers himself more ambidextrous. He reports no pain or weakness when swallowing. He has a history of rotator cuff issues on the opposite side. The patient also mentions a right ear infection that started approximately 1.5 weeks ago. Despite visiting an ENT specialist on 06/10/2025 and receiving medication, there has been no improvement. A perforation in his ear was discovered during this visit. He has a history of chronic ear infections and is currently on both oral medication and ear drops. He notes that he was not prescribed Augmentin this time, which is usually part of his treatment regimen. Exam General: Well-appearing in no acute distress speaking in complete sentences. Head: Normocephalic, atraumatic. Eye:[Pupils equal, round reactive to light.] Extraocular eye movements intact. No conjunctival injection. No scleral icterus. Ear, nose, mouth, throat: Grossly normal inspection. Normal voice, handling secretions normally. Neck: Trachea midline. Cardiovascular: Well-perfused distal extremities. Regular rate and rhythm. No murmurs. Respiratory: Nonlabored respiration. Clear lungs bilaterally. Gastrointestinal: Nondistended abdomen. Soft. Nontender. No rebound. No guarding. Musculoskeletal: Right upper extremity no obvious signs of trauma. No ecchymoses. No abrasions. There is minor erythema at the superior aspect of the patient's right shoulder. Right shoulder full range of motion. No clavicular tenderness. Patient is able to touch right hand to contralateral left shoulder. Right hand warm well-perfused intact sensation and motor function. 2+ right radial pulse. Nontender right elbow and forearm full range of motion. Skin: Normal for age and race, grossly normal temperature and turgor. No acute rash. Neurologic: Alert and appropriate, no apparent acute deficits. Cranial nerves II through XII intact grossly. No dysmetria. No pronator drift. 5 out of 5 bilateral upper and lower extremity strength. GCS 15. Psychiatric: Mood and manner are appropriate. Grooming and personal hygiene are appropriate. Related Data Home Medications ?Medication ?Instructions ?Recorded ?Confirmed atorvastatin 10 mg tablet 10 mg PO DAILY 02/27/24 06/17/25 chlorthalidone 25 mg tablet 25 mg PO DAILY 02/27/24 06/17/25 lisinopril 20 mg tablet 20 mg PO DAILY 02/27/24 06/17/25 cetirizine 10 mg capsule (All Day 10 mg PO DAILY PRN 12/10/24 06/17/25 Allergy (cetirizine)) bisacodyl 5 mg tablet,delayed 5 mg PO ONCE #4 tabs 12/20/24 06/17/25 release (Dulcolax (bisacodyl)) polyethylene glycol 3350 17 17 g PO ONCE #238 grams 12/20/24 06/17/25 gram/dose oral powder ofloxacin 0.3 % ear drops 10 drp otic (ear) DAILY 10/06/25 10/13/25 diazepam 5 mg tablet 5 mg PO QHS PRN #5 tabs 06/17/25 lidocaine 5 % topical patch 1 patch topical DAILY #15 ea 06/17/25 (Lidoderm) Previous Rx's ?Medication ?Instructions ?Recorded bisacodyl 5 mg tablet,delayed 5 mg PO ONCE #4 tabs 12/20/24 release (Dulcolax (bisacodyl)) polyethylene glycol 3350 17 17 g PO ONCE #238 grams 12/20/24 gram/dose oral powder diazepam 5 mg tablet 5 mg PO QHS PRN #5 tabs 06/17/25 lidocaine 5 % topical patch 1 patch topical DAILY #15 ea 06/17/25 (Lidoderm) Allergies Allergy/AdvReac Type Severity Reaction Status Date / Time No Known Allergies Allergy Verified 06/17/25 10:40 General Stated Complaint: Orthopedic JOSSELINE: 4 Course Vital Signs Vital signs: Vital Signs Temperature 37.1 C 06/17/25 10:38 Pulse 63 06/17/25 10:38 Respiratory Rate 18 06/17/25 10:38 Blood Pressure 170/117 H 06/17/25 10:38 Pulse Oximetry 98 06/17/25 10:38 Temperature 37.1 C 06/17/25 10:38 Pulse 63 06/17/25 10:38 Respiratory Rate 18 06/17/25 10:38 Blood Pressure 170/117 H 06/17/25 10:38 Pulse Oximetry 98 06/17/25 10:38 Pain Level 8 06/17/25 10:38 PFSH All Active Problems (Updated 06/17/25 @ 14:37 by Familia Ruiz MD) Degenerative disc disease, cervical (Acute) Hypocalcemia (Acute) Acute pain of right shoulder (Acute) Acute otitis media of right ear with perforation (Acute) Lipoma (Acute) Otitis externa, fungal, right ear (Acute) Fatty liver (Acute) Hiatal hernia (Chronic) Rectal bleeding (Acute) Decreased hearing of right ear (Acute) Subjective 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 Mixed hearing loss, bilateral (Acute) Perforation of right tympanic membrane (Acute) Renal colic on left side (Acute 11/14/13) Left flank pain (Acute 11/14/13) Medical History (Updated 10/13/25 @ 14:37 by Familia Ruiz MD) Congenital insufficiency of aortic valve Aortic stenosis Nicotine dependence Anxiety Genital herpes simplex Pt. denies, states he has never had this and doesn't not know why it is in his chart. Perforated appendicitis Splenic vein thrombosis Aortic regurgitation Ascending aortic aneurysm HLD (hyperlipidemia) Hypertension Pericarditis Surgical History (Updated 02/06/25 @ 08:47 by Mai Campbell) Hx of excision of mass (~02/2025) Lipoma mid back S/P laparotomy (~2008) laparotomy w/ major resection: splenectomy, gallbladder and omentum removal Hx of tonsillectomy S/P right knee arthroscopy (~1994) History of laparoscopic appendectomy History of colonoscopy (~2011) Social History (Updated 12/25/24 @ 08:26 by KAREN Blanco) Smoking/Tobacco Use Status: Former Tobacco Use Quit Date: 01/04/24 Smoking risk assessment performed?: Yes Alcohol Intake: current Alcohol Intake frequency: 0-2 drinks per day Alcohol type: beer Drug use: Occasionally Substance use type: marijuana Details: Use in the last 24hrs Housing: house Do you feel safe at home: Yes Do you feel safe in your relationship?: Yes
--- NOTE | 2025-06-17 11:00 | DI.CT_ITS ---
Exam(s) CT BRAIN NECK CTA EXAM: CT BRAIN NECK CTA CLINICAL HISTORY: Right-sided neck pain. TECHNIQUE: Imaging Protocol: Axial CT angiography was performed with multi- slice acquisition and multi-planar and MIP reconstructions. CONTRAST MATERIAL: Intravenous: Omnipaque 350 Contrast volume:70 ml COMPARISON: CT CT HEAD WO from 03/09/2024 FINDINGS: CT Head W/O and W contrast: Ventricles and Extra axial spaces: Normal in size and morphology for the patient's age. Hemorrhage: None. Cerebral parenchyma: No evidence of acute infarct or mass. Midline shift: None. Brainstem/Cerebellum: No acute findings.. Calvarium: Normal. Visualized Paranasal sinuses/Mastoids: Clear. Soft Tissues: Unremarkable. Enhancement: Normal. Venous sinuses are patent. CTA Brain W: Internal Carotid Arteries: Right: No aneurysm, occlusion or significant stenosis. Left: No aneurysm, occlusion or significant stenosis. Middle Cerebral Arteries: Right: No aneurysm, occlusion or significant stenosis. Left: No aneurysm, occlusion or significant stenosis. Anterior Cerebral Arteries: Right: No aneurysm, occlusion or significant stenosis. Left: No aneurysm, occlusion or significant stenosis. Posterior cerebral Arteries: Right: No aneurysm, occlusion or significant stenosis. Left: No aneurysm, occlusion or significant stenosis. Vertebral Arteries: Right: No aneurysm, occlusion or significant stenosis. Left: No aneurysm, occlusion or significant stenosis. Basilar Artery: No aneurysm, occlusion or significant stenosis. CTA Neck W: Visualized aorta: Unremarkable. Visualized pulmonary arteries: Unremarkable. Subclavian arteries: Unremarkable. Common Carotid: Right: No dissection, occlusion or significant stenosis. Left: No dissection, occlusion or significant stenosis. External Carotid: Right: No dissection, occlusion or significant stenosis. Left: No dissection, occlusion or significant stenosis. Internal Carotid: Right: No dissection, occlusion or significant stenosis. Left: No dissection, occlusion or significant stenosis. Vertebral Artery: Right: No dissection, occlusion or significant stenosis. Left: No dissection, occlusion or significant stenosis. Lung Apices: No acute findings. Bones: No acute abnormality. Degenerative disc changes C5-6. Soft Tissues: Normal. IMPRESSION: 1. CTA brain: Normal CTA examination of the [place]. 2. Head CT: No acute abnormality. 3. CTA neck: No visible plaque. No evidence of occlusion, significant stenosis or dissection. RADIATION DOSE DELIVERED: 2,344.26mGy.cm Total DLP DATA REPOSITORY: All CT scans at this facility are submitted to the National Radiology Data Registry (NRDR) Dose Index Registry (DIR) with the [employer] (A[employer]). RADIATION OPTIMIZATION: All CT scans at this facility use at least one of these dose optimization techniques: automated exposure control; mA and/or kV adjustment per patient size (includes targeted exams where dose is matched to clinical indication); or iterative reconstruction.
--- NOTE | 2025-06-17 11:15 | RT.EKG_ITS ---
APPROVED REPORT Exam: Resting ECG Reason for Exam: Right shoulder pain Patient Location: E HR:57 bpm ECG Measurements Heart Rate 57 AXIS PA 138 P 54 QRSd 106 QRS 33 QT 447 T -15 QTc 437 Conclusion Sinus bradycardia...rate< 60 Probable left atrial enlargement...P >50mS, <-0.10mV V1 Left ventricular hypertrophy...multiple LVH criteria Nonspecific T abnormalities, diffuse leads...T <-0.10mV, ant/lat/inf No Occlusion VT
[2025-06-17] MEDS: Normal Saline 500 ML IV (12:12)
[2025-06-17] MEDS: Ketorolac 15 MG/ML VIAL IVP (12:13)
[2025-06-17] MEDS: Normal Saline - Diluent 50 ML VIAL IJ (12:21)
[2025-06-17] MEDS: Omnipaque 350 MG/ML 100 ML BTL IJ (12:22)
[2025-06-17] MEDS: Normal Saline Flush 10 ML SYR IVP (12:23)
--- NOTE | 2025-06-17 12:47 | DI.RAD_ITS ---
Exam(s) XR CHEST 2V PA LATERAL EXAM: XR CHEST 2V PA LATERAL CLINICAL HISTORY: Right right upper chest TECHNIQUE: 2D digital imaging was performed. Two views. COMPARISON: CR ABD FLAT UPRIGHT PA CHEST from 01/13/2016 FINDINGS: HEART: Normal size. Aorta: Not dilated. PULMONARY VASCULATURE: Normal. MEDIASTINUM: Unremarkable. LUNGS: Clear. PLEURAL SPACE: No pleural effusion or pneumothorax. BONE:Unremarkable for age. SOFT TISSUES: Unremarkable. IMPRESSION: No acute abnormality. DATA REPOSITORY: RADIATION DOSE DELIVERED:
--- NOTE | 2025-06-17 12:47 | DI.RAD_ITS ---
Exam(s) XR SHOULDER RT COMPLETE 2+V EXAM: XR SHOULDER RT COMPLETE 2+V CLINICAL HISTORY: Right shoulder. TECHNIQUE: 2D digital imaging was performed. Five views. COMPARISON: No exams were available for comparison FINDINGS: BONES: No acute fracture is present. No bony destructive lesion is seen. JOINTS: No dislocation present. The AC joint appears intact. SOFT TISSUE: Normal. IMPRESSION: Unremarkable radiographs of the right shoulder. DATA REPOSITORY: RADIATION DOSE DELIVERED:
[2025-06-17 13:12] LABS: Abs Immature Grans 0.02 10^3/uL (0.0-0.06); HCT 39.9 % (40.0-50.0); HGB 14.1 g/dL (13.5-17.5); Immature Grans % 0.3 %; MCH 33.5 pg (27.0-33.0); MCHC 35.3 % (32.0-36.0); MCV 95 fL (80-95); MPV 10.0 fL (8.0-11.0); Platelet Count 281 10^3/uL (130-400); RBC 4.21 10^6/uL (4.36-5.78); RDW 14.0 % (11.8-14.1); RDW-SD 48.5 fL; WBC 7.05 10^3/uL (4.4-10.8)
[2025-06-17 13:27] LABS: ALT 16 U/L (16-63); AST 22 U/L (15-37); Albumin 3.5 g/dL (3.4-5.0); Alkaline Phosphatase 64 U/L (46-116); Anion Gap 8.3 mmol/L (3-11); BUN 9 mg/dL (7-18); Bilirubin, Total 0.9 mg/dL (0.2-1.0); CO2 29.7 mmol/L (21.0-32.0); Calcium 8.2 mg/dL (8.5-10.1); Chloride 101 mmol/L (98-107); Estimated GFR 94.00 (mL/min/1.73m2); Glucose 85 mg/dL (74-106); Lipase 21 U/L (<78); Potassium 3.4 mmol/L (3.5-5.1); Sodium 139 mmol/L (136-145); Total Protein 6.7 g/dL (6.4-8.2); Troponin I 13 ng/L (<or=76)
[2025-06-17] MEDS: Calcium Carbonate *TUMS* 500 MG CHEW PO (14:31)
[2025-06-17 14:36] LABS: Troponin I 13 ng/L (<or=76)
== END 2025-06-17 14:57 | disposition home or self-care (01) ==
PROVIDERS: Emergency Provider Emergency Medicine; PCP Family Medicine
DX: M25.511 Pain in right shoulder (principal); E83.51 Hypocalcemia; M50.30 Other cervical disc degeneration, unspecified cervical region
CPT/HCPCS: 36415; 70496; 70498; 80053; 83690; 93005; 96361; 96374; 99285; 71046; 73030; 84484; 85025; 93010; 99284; J1885; J3490

== ENCOUNTER 2025-06-21 07:03 | Emergency (ER) | payer MEDICAID, SELFPAY ==
[2025-06-21 07:10] VITALS: BP 170/90; PULSE 85; RESP 18; TEMP 36.8; O2SAT 100
--- NOTE | 2025-06-21 07:48 | W.ED.GENAD ---
Discharge Plan Disposition Patient Disposition: Home Condition: Stable Discharge Details Clinical Impression: Degenerative disc disease, cervical, Cervical radiculopathy, Hypokalemia, Hypomagnesemia Primary Care Provider: Marisa Kinney ED Provider: Cassia Hernández Home Meds and New Rx's Prescriptions: New prednisone 20 mg tablet 40 mg PO DAILY 4 Days Qty: 8 0RF Rx Instructions: Start 06/22/2025 oxycodone 5 mg tablet 5 mg PO Q8H PRNQty: 10 0RF No Action All Day Allergy (cetirizine) 10 mg capsule 10 mg PO DAILY PRN bisacodyl [Dulcolax (bisacodyl)] 5 mg tablet,delayed release (DR/EC) 5 mg PO ONCE Qty: 4 0RF Rx Instructions: Take per colonoscopy instructions provided by ordering providers office polyethylene glycol 3350 17 gram/dose powder 17 g PO ONCE Qty: 238 0RF Rx Instructions: Take per colonoscopy instructions provided by ordering providers office ofloxacin 0.3 % drops 10 drp otic (ear) DAILY atorvastatin 10 mg tablet 10 mg PO DAILY Patient Comments: TAKE ONE TABLET BY MOUTH EVERY DAY lisinopril 20 mg tablet 20 mg PO DAILY Patient Comments: TAKE ONE TABLET BY MOUTH EVERY DAY chlorthalidone 25 mg tablet 25 mg PO DAILY Patient Comments: TAKE ONE TABLET BY MOUTH EVERY DAY diazepam 5 mg tablet 5 mg PO QHS PRNQty: 5 0RF lidocaine [Lidoderm] 5 % adhesive patch,medicated 1 patch topical DAILY Qty: 15 0RF Rx Instructions: leave on most painful area for up to 12 hrs Discharge Instructions Instructions: Radiculopathy (DC) Additional Instructions: You were seen in the emergency department today for reevaluation of headache and right sided neck and shoulder pain, concerning for cervical radiculopathy or a pinched nerve due to the degenerative changes in your neck identified on CT scan during your last visit. In our department you do full physical examination performed, and you received medications for management of your symptoms. You did have some basic lab work, which showed a slightly low potassium and magnesium levels, which you can supplement through your diet with bananas, potatoes, leafy greens, dark chocolate, etc. As we discussed, it takes multimodal pain management and sometimes a great deal of trial and error to determine what medications are going to work best for you. Please use therapeutic dosing of Tylenol (acetaminophen) & Advil (ibuprofen) in an alternating fashion as follows: Take 1000mg of Tylenol every 6 hours without missing doses- that is 4 times per day. Fci in between the Tylenol doses, take 600mg of Advil also on a 6 hour schedule, that is also 4 times per day. With this strategy, you will be taking something for fever/pain as often as every 3 hours. The daily maximum dosing of Tylenol is 4000mg, and the daily maximum dosing of Advil is 2400mg. Please note that some common cold medications & prescription pain medications may contain acetaminophen and you need to read OTC drug labels and factor that in to maximum daily doses. I recommend that you continue to use your Lidoderm patches, and can continue to use the diazepam if it is helpful for your muscle spasms. I did start you on a prednisone course, which can reduce inflammation in the compressed nerves, you will take that for another 4 days. Finally, I have provided you with a short course of oxycodone for breakthrough pain. Continue to use heat and gentle stretching. As we discussed, the next step in diagnostics would be an MRI, which would not be able to be completed in this emergency department for a few hours. It is reasonable given your exam for you to follow-up with your primary care provider and have them order this study so that it can be reviewed by them and any findings acted upon in a timely manner. Please follow-up with your primary care provider in the next few days to discuss this visit and any symptoms that change, worsen, or persist. Thank you for allowing us to be part of your care. Discharge Data Discharge Date/Time-TO BE ENTERED AT DEPARTURE: 06/21/25 09:21 HPI General Mode of arrival: ambulatory. Date/Time Provider Initiated Documentation: 06/21/25 07:26. Limitations to Documentation: no limitations. Information obtained by: patient and old records reviewed. HPI Narrative: This is a 44-year-old male patient with a past medical history significant for aortic stenosis, hypertension, hyperlipidemia, and a recent visit to our emergency department for right sided neck and shoulder pain, presenting for evaluation of ongoing symptoms. He has had the symptoms for approximately 2 weeks in total male. I was able to review the prior ED visit notes, including the imaging that was performed at that time to include CTA head and neck, x-ray shoulder and chest, which noted degenerative changes at C5/C6. His symptoms at that time were most concerning for cervical radiculopathy, and he was discharged with a prescription for diazepam for muscle relaxation. The patient reports that he has been trying that medication but it has not been helping. He states that the pain radiates up the back of his head and is giving him headaches, states that he is concerned that there is something else going on like a pinched nerve in his neck. He states that he has not sustained any significant trauma, has not noted any new weakness, numbness, or tingling, but does note reproduction of the symptoms with palpation or movement of the neck or right shoulder. Denies saddle anesthesia, bowel or bowel bladder changes. Related Data Home Medications ?Medication ?Instructions ?Recorded ?Confirmed atorvastatin 10 mg tablet 10 mg PO DAILY 02/27/24 06/17/25 chlorthalidone 25 mg tablet 25 mg PO DAILY 02/27/24 06/17/25 lisinopril 20 mg tablet 20 mg PO DAILY 02/27/24 06/17/25 cetirizine 10 mg capsule (All Day 10 mg PO DAILY PRN 12/10/24 06/17/25 Allergy (cetirizine)) bisacodyl 5 mg tablet,delayed 5 mg PO ONCE #4 tabs 12/20/24 06/17/25 release (Dulcolax (bisacodyl)) polyethylene glycol 3350 17 17 g PO ONCE #238 grams 12/20/24 06/17/25 gram/dose oral powder ofloxacin 0.3 % ear drops 10 drp otic (ear) DAILY 06/10/25 06/17/25 diazepam 5 mg tablet 5 mg PO QHS PRN #5 tabs 06/17/25 lidocaine 5 % topical patch 1 patch topical DAILY #15 ea 06/17/25 (Lidoderm) oxycodone 5 mg tablet 5 mg PO Q8H PRN #10 tabs 06/21/25 prednisone 20 mg tablet 40 mg (2 x 20 mg) PO DAILY 4 days 06/21/25 #8 tabs Previous Rx's ?Medication ?Instructions ?Recorded bisacodyl 5 mg tablet,delayed 5 mg PO ONCE #4 tabs 12/20/24 release (Dulcolax (bisacodyl)) polyethylene glycol 3350 17 17 g PO ONCE #238 grams 12/20/24 gram/dose oral powder diazepam 5 mg tablet 5 mg PO QHS PRN #5 tabs 06/17/25 lidocaine 5 % topical patch 1 patch topical DAILY #15 ea 06/17/25 (Lidoderm) oxycodone 5 mg tablet 5 mg PO Q8H PRN #10 tabs 06/21/25 prednisone 20 mg tablet 40 mg (2 x 20 mg) PO DAILY 4 days 06/21/25 #8 tabs Allergies Allergy/AdvReac Type Severity Reaction Status Date / Time No Known Allergies Allergy Verified 06/17/25 10:40 General Stated Complaint: Nk/Back Pain JOSSELINE: 3 Exam Narrative Exam Narrative: Gen: Awake and alert, in no apparent distress HEENT: Non-icteric sclera, EOMs full. Neck: Supple,, tenderness to palpation in the right paraspinal and occipital region with no discrete muscular spasm palpated. No overlying skin changes are noted. Tenderness overlying the right trapezius muscle as well. Lungs: No apparent respiratory distress, normal respiratory effort. Lung sounds clear and equal CV: Appears well perfused, heart with regular rate and rhythm, strong distal pulses Abdomen: Non-distended MSK: Moves 4 extremities without apparent limitation in ROM Skin: Visualized skin without rashes, cyanosis. Neuro: Normal Gait, face is symmetrical. The patient has preserved and symmetrical strength and sensation in the bilateral upper extremities, no sensory deficits or reported weakness in the lower extremities. Speaks in full, clear sentences. Psych: Appropriate for situation. Course Vital Signs Vital signs: Vital Signs Temperature 36.8 C 06/21/25 07:10 Pulse 85 06/21/25 07:10 Respiratory Rate 18 06/21/25 07:10 Blood Pressure 170/90 H 06/21/25 07:10 Pulse Oximetry 100 06/21/25 07:10 Temperature 36.8 C 06/21/25 07:10 Temperature Source Oral 06/21/25 07:10 Pulse 85 06/21/25 07:10 Respiratory Rate 18 06/21/25 07:10 Blood Pressure 170/90 H 06/21/25 07:10 Blood Pressure Position Sitting 06/21/25 07:10 Pulse Oximetry 100 06/21/25 07:10 Oxygen Delivery Method Room Air 06/21/25 07:10 Oxygen Flow Rate 0 06/21/25 07:10 Pain Level 7 06/21/25 07:29 Medical Decision Making This is a 44-year-old male patient presenting for reevaluation of right sided neck and shoulder pain. Differential includes but is not limited to cervical radiculopathy, spinal canal stenosis, cervical disc disease, tension headache, muscle strain, sprain. reassuringly, the patient had a CTA performed within the last few days, which showed no evidence of intracranial abnormality such as hemorrhage, mass effect, or vascular disease such as aneurysm or dissection. He has not had trauma to suggest fracture or dislocation, and did not have any concerning findings on his chest x-ray such as Pancoast tumor. No overlying skin changes to suggest zoster. The patient is reassuringly neurologically intact at this time, and I did discuss with him the findings of degenerative cervical changes and my concern for cervical radiculopathy. We will provide the patient with Toradol, Tylenol, prednisone, and Flexeril for initial management of pain. I will obtain basic laboratory studies to include CBC, BMP, magnesium. Given the robust imaging obtained at the prior provider's visit, I do not see an indication to proceed with advanced imaging at this time, though certainly an MRI could be considered outpatient if his symptoms were to persist. - The patient reports that his pain is not significantly improved with the above-noted regimen. I did review the patient's laboratory studies, which show no leukocytosis, anemia, or thrombocytopenia. Chemistry panel reveals a mild hypokalemia and hypomagnesemia, no evidence of kidney dysfunction. I was able to call over to MRI, who has an opening at 1:45 PM during which time this patient could have imaging performed if he desires. I do not see any emergent findings on physical examination to warrant imaging sooner, and certainly with out neurodeficits imaging as an outpatient is also appropriate. I shared the laboratory studies with the patient, he declined intravenous repletion of the magnesium but is amenable to oral potassium. He at this time declines the MRI and will follow-up with his primary care provider to discuss this visit and any symptoms that change, worsen, or persist. Given the failure with muscle relaxers, I provided the patient with a short course of oxycodone to supplement his multimodal pain management regimen. At this time, the patient has had a full medical evaluation and is safe for discharge to home. They are hemodynamically stable, ambulatory, and tolerating PO. They are understanding of the follow-up plan and return precautions. They left our facility without incident. Cassia Hernández MD [facility] All Active Problems (Updated 06/21/25 @ 09:11 by Cassia Hernández MD) Hypomagnesemia (Acute) Hypokalemia (Acute) Cervical radiculopathy (Acute) Degenerative disc disease, cervical (Acute) Hypocalcemia (Acute) Acute pain of right shoulder (Acute) Acute otitis media of right ear with perforation (Acute) Lipoma (Acute) Otitis externa, fungal, right ear (Acute) Fatty liver (Acute) Hiatal hernia (Chronic) Rectal bleeding (Acute) Decreased hearing of right ear (Acute) Subjective 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 Mixed hearing loss, bilateral (Acute) Perforation of right tympanic membrane (Acute) Renal colic on left side (Acute 11/14/13) Left flank pain (Acute 11/14/13) Medical History (Updated 06/21/25 @ 09:11 by Cassia Hernández MD) Congenital insufficiency of aortic valve Aortic stenosis Nicotine dependence Anxiety Genital herpes simplex Pt. denies, states he has never had this and doesn't not know why it is in his chart. Perforated appendicitis Splenic vein thrombosis Aortic regurgitation Ascending aortic aneurysm HLD (hyperlipidemia) Hypertension Pericarditis Surgical History (Updated 02/06/25 @ 08:47 by Mai Campbell) Hx of excision of mass (~02/2025) Lipoma mid back S/P laparotomy (~2008) laparotomy w/ major resection: splenectomy, gallbladder and omentum removal Hx of tonsillectomy S/P right knee arthroscopy (~1994) History of laparoscopic appendectomy History of colonoscopy (~2011) Social History (Updated 12/25/24 @ 08:26 by KAREN Blanco) Smoking/Tobacco Use Status: Former Tobacco Use Quit Date: 01/04/24 Smoking risk assessment performed?: Yes Alcohol Intake: current Alcohol Intake frequency: 0-2 drinks per day Alcohol type: beer Drug use: Occasionally Substance use type: marijuana Details: Use in the last 24hrs Housing: house Do you feel safe at home: Yes Do you feel safe in your relationship?: Yes
[2025-06-21] MEDS: Ketorolac 15 MG/ML VIAL IVP (08:15)
[2025-06-21] MEDS: Cyclobenzaprine 10 MG TAB PO (08:15)
[2025-06-21] MEDS: Acetaminophen 500 MG TAB 1000 MG PO (08:15)
[2025-06-21] MEDS: predniSONE 20 MG TAB 60 MG PO (08:15)
[2025-06-21 08:27] LABS: Abs Immature Grans 0.02 10^3/uL (0.0-0.06); HCT 38.4 % (40.0-50.0); HGB 13.9 g/dL (13.5-17.5); Immature Grans % 0.2 %; MCH 33.4 pg (27.0-33.0); MCHC 36.2 % (32.0-36.0); MCV 92 fL (80-95); MPV 10.0 fL (8.0-11.0); Platelet Count 264 10^3/uL (130-400); RBC 4.16 10^6/uL (4.36-5.78); RDW 13.2 % (11.8-14.1); RDW-SD 44.3 fL; WBC 8.56 10^3/uL (4.4-10.8)
[2025-06-21 08:38] LABS: Anion Gap 9.5 mmol/L (3-11); BUN 13 mg/dL (7-18); CO2 26.5 mmol/L (21.0-32.0); Calcium 8.6 mg/dL (8.5-10.1); Chloride 99 mmol/L (98-107); Estimated GFR 94.00 (mL/min/1.73m2); Glucose 103 mg/dL (74-106); Magnesium 1.6 mg/dL (1.8-2.4); Potassium 3.1 mmol/L (3.5-5.1); Sodium 135 mmol/L (136-145)
[2025-06-21] MEDS: Potassium Chloride 20 MEQ TABCR 40 MEQ PO (09:08)
[2025-06-21 09:14] VITALS: BP 153/87; PULSE 53; RESP 17; O2SAT 96
== END 2025-06-21 09:21 | disposition home or self-care (01) ==
PROVIDERS: Emergency Provider Emergency Medicine; PCP Family Medicine
DX: M54.12 Radiculopathy, cervical region (principal); E87.6 Hypokalemia; E83.42 Hypomagnesemia; M50.322 Other cervical disc degeneration at C5-C6 level
CPT/HCPCS: 99284 ×2; 96374; 80048; 83735; 85025; J1885; J7512

== ENCOUNTER → 2025-07-24 02:13 | Outpatient (CLI) | payer MEDICAID, SELFPAY ==
--- NOTE | 2025-07-24 | DI.MRI_ITS ---
Exam(s) MR CERVICAL SPINE WO EXAM: MR CERVICAL SPINE WO CLINICAL HISTORY: M54.12 Radiculopathy, cervical region TECHNIQUE: Multiplanar multisequence MRI of the cervical spine was performed without intravenous contrast. COMPARISON: CT CT BRAIN NECK CTA from 06/17/2025 FINDINGS: BONES: Vertebral body heights are maintained. There is straightening of the normal cervical lordosis. Bone marrow signal intensity is within normal limits. CERVICAL CORD: Craniovertebral junction is unremarkable. The cervical cord is normal size and signal intensity. SOFT TISSUES: Unremarkable. C2-3: Normal disc height. No disc herniation or bulge is identified. No evidence of neural foraminal narrowing. No significant central canal stenosis. C3-4: Normal disc height. No disc herniation or bulge is identified. No evidence of neural foraminal narrowing. No significant central canal stenosis. C4-5: Normal disc height. Minimal endplate osteophytes. No disc herniation or bulge is identified. No evidence of neural foraminal narrowing. No significant central canal stenosis. C5-6: [id number] loss of disc height, greater anteriorly. Endplate osteophytes project circumferentially, greater anteriorly. There is mild diffuse disc bulging.No evidence of neural foraminal narrowing. There is effacement of the anterior CSF space. There is severe right neural foraminal narrowing. C6-7: The disc height is maintained. There are minimal endplate osteophytes. No disc herniation or bulge is identified. No evidence of neural foraminal narrowing. No significant central canal stenosis. C7-T1: Disc height is maintained. No significant osteophytes. Left-sided nerve root sheath cyst. No disc herniation or bulge is identified. No evidence of neural foraminal narrowing. No significant central canal stenosis. IMPRESSION: Degenerative disc changes at C5-6 cause mild central canal stenosis, the AP dimension as well as severe right neural foraminal narrowing. DATA REPOSITORY:
== END ==
LOC: DI 02:13
PROVIDERS: PCP Family Medicine
DX: M48.02 Spinal stenosis, cervical region
CPT/HCPCS: 72141